=== PATIENT | female | born 1965 | race Caucasian/White ===

== ENCOUNTER 2022-07-17 12:18 | Day surgery (SDC) | payer MEDICARE, BC ==
--- NOTE | 2022-07-17 12:54 | ANESTHESIA ---
Pre-Anesthesia VS, & Labs - Diagnosis change in bowel habits - Procedure colonoscopy Vital Signs: Temp Pulse Resp BP Pulse Ox O2 Flow Rate 36.4 C L 66 16 146/85 H 99 0 07/17/22 12:43 07/17/22 12:43 07/17/22 12:43 07/17/22 12:43 07/17/22 12:43 07/17/22 12:43 Height: 5 ft 9 in Weight (kg): 76.5 kg Body Mass Index: 24.9 BMI Classification: Normal - NPO >8 hours Last Fluid Intake: am prep - Is Patient ?: No - Lab Results Lab results reviewed: Yes Home Medications and Allergies Home Medications: Ambulatory Orders Furosemide [Lasix] 20 mg PO DAILY 07/16/22 Gabapentin [Neurontin] 400 mg PO HS 07/16/22 Levothyroxine Sodium [Synthroid] 25 mcg PO DAILY 07/16/22 Metoprolol Tartrate [Lopressor] 25 mg PO DAILY 07/16/22 Furosemide [Lasix] 20 mg PO DAILY 07/16/22 Gabapentin [Neurontin] 400 mg PO HS 07/16/22 Levothyroxine Sodium [Synthroid] 25 mcg PO DAILY 07/16/22 Metoprolol Tartrate [Lopressor] 25 mg PO DAILY 07/16/22 Allergies/Adverse Reactions: Allergies Allergy/AdvReac Type Severity Reaction Status Date / Time No Known Drug Allergies Allergy Verified 07/16/22 11:37 Anes History & Medical History - Anesthetic History Anesthesia Complications: reports: No previous complications Family history of Anesthesia Complications: Denies Family history of Malignant Hyperthermia: Denies - Medical History Cardiovascular: reports: Hypertension Pulmonary: reports: None Gastrointestinal: reports: None Urinary: reports: None Musculoskeletal: reports: None Endocrine/Autoimmune: reports: HyPOthyroidism Skin: reports: None History of Cancer?: Yes (fallopian tube current with chemo) - Surgical History General: reports: Colonoscopy, Other Gynecologic: reports: Hysterectomy Exam General: Alert, Oriented x3, Cooperative Dental: WNL Mouth Openin Fingerbreadth Neck Mobility: Normal Mallampati classification: I Thyromental Distance: 4-6 cm Respiratory: Lungs clear, Normal breath sounds, No respiratory distress Cardiovascular: Regular rate Neurological: Normal speech Mental/Cognitive Status: Alert/Oriented X3, Normal for patient Cognitive Status: Within normal limits Plan Anesthesia Type: Total IV Consent for Procedure(s) Verified and Reviewed: Yes Code Status: Attempt Resuscitation ASA classification: 3-Severe systemic disease Is this case an emergency?: No
[2022-07-17] MEDS ORDERED: LACTATED RINGERS 1,000 ML IV ONE ×2 (13:05→14:03)
[2022-07-17] MEDS ORDERED: PROPOFOL 500 MG/50 ML 500 MG/50 ML VIAL ONE (13:17)
[2022-07-17] MEDS ORDERED: MIDAZOLAM 2 MG/2 ML VIAL ONE (13:19)
[2022-07-17] MEDS ORDERED: PROPOFOL 200 MG/20 ML VIAL IVP ONE (13:19)
[2022-07-17] MEDS ORDERED: LIDOCAINE-MPF 2% 5 ML VIAL ONE (13:21)
--- NOTE | 2022-07-17 14:04 | ANESTHESIA POST OP EVALUATION ---
Anesthesia Post Eval - Post Anesthesia Eval Vitals: Last Vital Signs Temp 36.4 C L 07/17/22 12:43 Pulse 66 07/17/22 12:43 Resp 16 07/17/22 12:43 BP 146/85 H 07/17/22 12:43 Pulse Ox 99 07/17/22 12:43 O2 Flow Rate 0 07/17/22 12:43 CV Function Including HR & BP: Stable Pain Control: Satisfactory Nausea & Vomiting: Negative Mental Status: Baseline Respiratory Status: Airway Patent Hydration Status: Satisfactory Anesthesia Complications: None
[2022-07-17 14:25] VITALS: BP 118/79
== END 2022-07-17 12:19 | disposition home or self-care (01) ==
LOC: SDS 12:18
PROVIDERS: ATTEND Surgery
DX: R19.4 Change in bowel habit (principal); R19.5 Other fecal abnormalities; I10 Essential (primary) hypertension; Z80.0 Family history of malignant neoplasm of digestive organs; Z85.038 Personal history of other malignant neoplasm of large intestine; Z85.44 Personal history of malignant neoplasm of other female genital organs
CPT/HCPCS: 45378; J7120

== ENCOUNTER 2023-02-06 13:24 | Outpatient (CLI) | payer MEDICARE, BC ==
--- NOTE | 2023-02-15 11:14 | Mammography Report ---
BILATERAL DIGITAL SCREENING MAMMOGRAM 3D/2D: 02/06/2023 CLINICAL: Routine screening. No prior exams were available for comparison. Both breasts are heterogeneously dense, which may obscure small masses (category c / 51-75% glandular tissue). No significant masses, calcifications, or other findings are seen in either breast. IMPRESSION: NEGATIVE There is no mammographic evidence of malignancy. A 1 year screening mammogram is recommended. Based on the Tyrer Cuzick model (a risk assessment model) the patients lifetime risk is 13.1% and he r 10 year risk is 4.9%. According to the ACR, ACS, and NCCN guidelines, an annual breast MRI exam sylvie ng with mammogram is recommended if the patients lifetime risk is 20% or greater. This exam was interpreted at Station ID: [id number]. NOTE: For mammograms, a report in lay terms will be sent to the patient. Approximately 15% of breast malignancies will not be visualized mammographically. In the management of a palpable breast mass, a negative mammogram must not discourage biopsy of a clinically suspicious lesion. Electronically Signed By: Haroldo long/jessica:02/14/2023 13:10:09 letter sent: No_Letter ACR BI-RADS Category 1: Negative 3341F PARENCHYMAL PATTERN: (D) - The breast(s) demonstrate(s) heterogeneously dense fibroglandular parshanelly graciela. BI-RADS CATEGORY: (1) - 1 Mammogram [id number] 1 year screening LATERALITY: (B)
== END 2023-02-06 13:25 | disposition home or self-care (01) ==
LOC: DI 13:24
PROVIDERS: ATTEND Internal Medicine
DX: Z12.31 Encounter for screening mammogram for malignant neoplasm of breast (principal)

== ENCOUNTER 2024-03-09 12:55 | Outpatient (CLI) | payer MEDICARE, BC ==
--- NOTE | 2024-03-10 10:17 | Mammography Report ---
BILATERAL DIGITAL SCREENING MAMMOGRAM 3D/2D: 03/09/2024 CLINICAL: Routine screening. Comparison is made to exam dated: 02/06/2023 mammogram - [facility]. Both breasts are heterogeneously dense, which may obscure small masses (category c / 51-75% glandular tissue). No significant masses, calcifications, or other findings are seen in either breast. There has been no significant interval change. IMPRESSION: NEGATIVE There is no mammographic evidence of malignancy. A 1 year screening mammogram is recommended. Based on the Tyrer Cuzick model (a risk assessment model) the patient's lifetime risk is 12.9% and he r 10 year risk is 5.0%. According to the ACR, ACS, and NCCN guidelines, an annual breast MRI exam sylvie ng with mammogram is recommended if the patient's lifetime risk is 20% or greater. This exam was interpreted at Station ID: [id number]. NOTE: For mammograms, a report in lay terms will be sent to the patient. Approximately 15% of breast malignancies will not be visualized mammographically. In the management of a palpable breast mass, a negative mammogram must not discourage biopsy of a clinically suspicious lesion. Electronically Signed By: Carlitos Carcamo M.D. [facility] [place]:03/09/2024 19:08:18 letter sent: No_Letter ACR BI-RADS Category 1: Negative 3341F PARENCHYMAL PATTERN: (D) - The breast(s) demonstrate(s) heterogeneously dense fibroglandular chepe owens. BI-RADS CATEGORY: (1) - 1 RECOMMENDATION: (ANNUAL) - Recommend routine annual screening mammography. [id number] 1 year screening LATERALITY: (B)
== END 2024-03-09 12:56 | disposition home or self-care (01) ==
LOC: DI 12:55
PROVIDERS: ATTEND Internal Medicine
DX: Z12.31 Encounter for screening mammogram for malignant neoplasm of breast (principal); R92.333 Mammographic heterogeneous density, bilateral breasts

== ENCOUNTER 2025-02-21 13:23 | Inpatient (IN) ==
--- OUTSIDE RECORDS SUMMARY | 2025-02-21 13:41 | EXTERNAL MEDICAL SUMMARY RPT | Continuity of Care Document ---
Author Organization [facility] Address [address] [address] Phone Problems date description facility 2024-12-15 08:08 Encounter for genera l adult medical examination without abnormal findings [facility] 2024-12-15 08:19 Encounter for genera l adult medical [facility] 2024-12-16 00:03 Encounter for genera l adult medical examination [facility] Results/Labs test date facility value unit notes Result panel 1 LDL/HDL RATIO 2024-12-15 08:11 [facility] 1.5 (mis sing) (missing) [facility] 2024-12-15 08:11 [facility] 135 mg/d l Social History date description facility
--- NOTE | 2025-02-21 14:28 | ED Physician Documentation ---
History of Present Illness Stated complaint Stated Complaint: GI Chief complaint Chief Complaint: Abd Pain History obtained from History obtained from: Patient History of Present Illness Timing: Prior to arrival Additonal information Additional information: Patient is a 60-year-old female presenting to the emergency department with abdominal pain. She had multiple episodes of nausea and vomiting going on since Saturday. She notes pain to her right lower quadrant. She has a significant past medical history of ovarian cancer that she has been treated for with immunotherapy at this time.She has had multiple abdominal surgeries including appendectomy bowel resection in 2020 and oophorectomy with hysterectomy.No history of small bowel obstruction no fevers or chills. She has not been able to have an episode of vomiting yesterday since yesterday. She has poor urine output and is not passing gas or having any bowel movements. Meds/Allgy Home Medications Ambulatory Orders Medication Instructions Recorded Confirmed levothyroxine 25 mcg tablet 25 mcg PO DAILY 07/16/22 02/21/25 (Synthroid) Allergies Allergies Allergy/AdvReac Type Severity Reaction Status Date / Time No Known Drug Allergies Allergy Verified 02/21/25 13:35 PFSH Active Problems All Active Problems (Updated 02/21/25 @ 17:08 by Kenia Adamson MD) Nausea & vomiting (Acute) SBO (small bowel obstruction) (Acute) Partial small bowel obstruction (Acute) Medical History Medical History (Updated 02/21/25 @ 17:08 by Kenia Adamson MD) Stage IV carcinoma of ovary Social History Social History (Updated 02/21/25 @ 15:00 by Ld Davies RN, BSN) Smoking Status: Never smoker Living arrangement: At home Relationship: Do you feel safe in your home environment?: Yes Suffered physical, verbal, emotional, or financial abuse?: No ETOH Use: None Exam Exam Vital Signs: Vital Signs x48h Temp Pulse Resp BP Pulse Ox 02/21/25 16:08 70 16 128/82 98 02/21/25 13:35 65 16 155/87 H 98 02/21/25 13:33 36.6 C 92 18 136/93 H 98 Constitutional normal general appearance HENMT normocephalic and head/scalp atraumatic Eyes PERRL, EOMs intact bilaterally and conjunctivae normal Neck/C-Spine visual inspection normal Lymph no lymphadenopathy noted Chest inspection of chest normal Respiratory breath sounds equal bilaterally, normal respiratory effort and clear to auscultation bilaterally Cardiovascular normal heart rate noted, regular rhythm noted, no gallop and no rub Gastrointestinal abdomen normal to inspection Abdomen is tender, No active bowel sounds on auscultation Genitourinary no CVA tenderness Back/Pelvis spine normal to inspection Psychiatry mental status grossly normal Skin skin color normal Results Vitals Vitals: Vital Signs - 24 hr 02/21/25 13:33 02/21/25 13:35 02/21/25 16:08 Temperature 36.6 C Temperature Source Temporal Artery Scan Pulse Rate 92 65 70 Respiratory Rate 18 16 16 Blood Pressure 136/93 H 155/87 H 128/82 O2 Saturation 98 98 98 O2 Source Room air Room air Room air Pain Intensity 8 3 3 Oxygen O2 Source Room air Labs Labs: Laboratory Tests 02/21/25 14:30 WBC 8.6 RBC 4.25 Hgb 12.7 Hct 40.2 MCV 94.6 MCH 29.9 MCHC 31.6 L RDW 13.2 Plt Count 188 MPV 11.2 H Neut # (Auto) 7.3 H Lymph # (Auto) 0.7 L [place] # (Auto) 0.5 Eos # (Auto) 0.0 Baso # (Auto) 0.0 Absolute Nucleated RBC 0.00 Nucleated RBC % 0.0 Sodium 140 Potassium 4.1 Chloride 104 Carbon Dioxide 28 Anion Gap 8.0 BUN 33 H Creatinine 1.3 Estimated GFR (MDRD) 42 L Glucose 98 Calcium 9.1 Total Bilirubin 1.1 H AST 17 ALT 11 Alkaline Phosphatase 88 Total Protein 6.7 Albumin 3.9 Globulin 2.8 Albumin/Globulin Ratio 1.4 Lipase 22 Urine Color YELLOW Urine Clarity CLEAR Urine pH 6.0 Ur Specific [place] >=1.030 H Urine Protein 30 H Urine Glucose (UA) NEGATIVE Urine Ketones TRACE Urine Occult Blood NEGATIVE Urine Nitrite NEGATIVE Urine Bilirubin SMALL H Urine Urobilinogen 0.2 (NORMAL) Ur Leukocyte Esterase NEGATIVE Urine RBC 0-5 Urine WBC 0-3 Ur Squamous Epith Cells RARE Squamous Urine Bacteria Rare Urine Mucus Moderate Strands Ur Microscopic Review INDICATED Urine Culture Comments NOT INDICATED Rads (name of study) CT abdomen pelvis with contrast: Interpretation: Small bowel obstruction involving the bowel to bowel anastomosis. Transition point identified within the left lower quadrant axial image 90 moderate free fluid within the abdomen without rise abscess. PD Medical Decision Making ED course Complexity details: reviewed old records and reviewed results ED course: Patient 60-year-old female presenting to the emergency department with abdominal pain in the right lower quadrant and nausea and vomiting and decreased bowel movements. History of multiple surgeries including appendectomy, bowel resection in 2020, history of hysterectomy. Labs here in the emergency department show no leukocytosis CMP is unremarkable no significant JENNY UA is negative lipase within normal limits. CT abdomen pelvis: Small bowel obstruction involving the bowel to bowel anastomosis. Transition point identified within the left lower quadrant axial image 90 moderate free fluid within the abdomen without rise abscess. Patient CT concerning for small bowel obstruction NG tube ordered here in the ED General Surgery made aware and will see patient in hospital. Patient admitted to Dr. Aquino who is agreeable with admission at this time she will come down and evaluate patient here in the ED. Patient agreeable with this plan. Discharge Plan Discharge Patient Disposition: 66 [facility] DC/Xfer Condition: Good Clinical Impression: SBO (small bowel obstruction), Nausea & vomiting Prescriptions: No Action levothyroxine [Synthroid] 25 MCG tablet 25 mcg PO DAILY Print Language: Maldivian
[2025-02-21] MEDS: SODIUM CHLORIDE 0.9% 1,000 ML IV STA (14:29)
[2025-02-21] MEDS: ONDANSETRON 4 MG/2 ML VIAL IVP STA (14:29)
[2025-02-21 14:50] LABS: BILIRUBIN,URINE SMALL (NEGATIVE); CLARITY,URINE CLEAR (CLEAR); GLUCOSE, URINE (UA) NEGATIVE (NEGATIVE); KETONES,URINE (UA) TRACE mg/dL (NEGATIVE); LEUKOCYTE ESTERASE, URINE NEGATIVE (NEGATIVE); NITRITE,URINE NEGATIVE (NEGATIVE); OCCULT BLOOD,URINE NEGATIVE (NEGATIVE); PROTEIN,URINE 30 mg/dL (NEGATIVE); UROBILINOGEN,URINE 0.2 (NORMAL) E.U./dL (NORMAL)
[2025-02-21 14:54] LABS: BASOPHILS % (AUTO) 0.4 %; HCT - HEMATOCRIT 40.2 % (37.0-47.0); HGB - HEMOGLOBIN 12.7 g/dL (12.0-16.0); LYMPHOCYTES # (AUTO) 0.7 10^3/uL (1.5-3.5); LYMPHOCYTES % (AUTO) 8.4 %; MEAN CORPUSCULAR HEMOGLOBIN 29.9 pg (27.0-31.0); MEAN CORPUSCULAR HGB CONC 31.6 g/dL (32.0-36.0); MEAN CORPUSCULAR VOLUME 94.6 fL (81.0-99.0); MEAN PLATELET VOLUME 11.2 fL (7.9-10.8); MONOCYTES # (AUTO) 0.5 10^3/uL (0.0-1.0); MONOCYTES % (AUTO) 6.3 %; NEUTROPHILS # (AUTO) 7.3 10^3/uL (1.5-6.6); NEUTROPHILS % (AUTO) 84.8 %; PLT - PLATELET COUNT 188 10^3/uL (130-450); RED BLOOD COUNT 4.25 10^6/uL (4.20-5.40); RED CELL DISTRIBUTION WIDTH 13.2 % (12.0-15.0); WHITE BLOOD COUNT 8.6 x10^3/uL (4.8-10.8)
[2025-02-21 14:56] LABS: BACTERIA,URINE Rare /HPF (None Seen); MUCUS,URINE Moderate Strands; RBC,URINE 0-5 /HPF (0-5); SQUAMOUS EPITHELIAL CELL,UR RARE Squamous (<= Few); WBC,URINE 0-3 /HPF (0-5)
[2025-02-21 15:09] LABS: ALBUMIN 3.9 g/dL (3.2-5.5); ALBUMIN/GLOBULIN RATIO 1.4 (1.0-2.2); BILIRUBIN,TOTAL 1.1 mg/dL (0.2-1.0); CALCIUM 9.1 mg/dL (8.5-10.3); CREATININE 1.3 mg/dL (0.6-1.3); POTASSIUM 4.1 mmol/L (3.5-4.5); TOTAL PROTEIN 6.7 g/dL (6.4-8.9)
[2025-02-21] MEDS ORDERED: iohexoL-300 100 ML VIAL ONE (15:12)
[2025-02-21] MEDS: iohexoL-300 100 ML VIAL IVP ONE (16:37)
--- NOTE | 2025-02-21 16:41 | CT Report ---
PROCEDURE: CT Abdomen/Pelvis W INDICATIONS: concern for sbo, hx of colectomy and multiple abd CONTRAST: omni 300, 100 TECHNIQUE: After the administration of intravenous contrast, a CT scan of the abdomen and pelvis was performed. Images were recorded and evaluated at appropriate window settings. Reformats: coronal and sagittal. F or radiation dose reduction, the following was used: automated exposure control, adjustment of mA and /or kV according to patient size. COMPARISON: None. FINDINGS: Image quality: Diagnostic. Lower chest: Unremarkable. Liver: Hepatic steatosis. Gallbladder: No radiopaque stones or wall thickening. Biliary tree: No intrahepatic or extrahepatic dilation, accounting for age. Spleen: No splenomegaly. Pancreas: No pancreatic ductal dilation. Adrenals: No adrenal nodule. Kidneys and ureters: No hydronephrosis. No renal cystic lesion which requires follow up. No solid mas s. Stomach, bowel and peritoneum: Small bowel obstruction involving the bowel to bowel anastomosis. Barboza sition point identified within the left lower quadrant axial image 90 moderate free fluid within the abdomen without rise abscess. Lymph nodes: No central or retroperitoneal adenopathy. Vessels: No infrarenal aortic aneurysm. Patent portal vein. PELVIS Reproductive organs: Unremarkable. Bladder: No abnormal wall thickening. Pelvic lymph nodes: No pelvic adenopathy by size criteria. Bones: No aggressive osseous abnormality. Other: No significant ventral or inguinal hernia. IMPRESSION: Small bowel instruction with transition point within left lower quadrant. No free air identified. Hepatic steatosis. Reviewed by: Gen Almeida MD on 02/21/2025 3:39 PM AKAARTI Approved by: Gen Almeida MD on 02/21/2025 3:39 PM AKDT Station ID: [id number]
--- NOTE | 2025-02-21 17:03 | HISTORY & PHYSICAL EXAMINATION ---
Chief Complaint Chief Complaint Chief Complaint: abdominal pain w N/V History of Present Illness Admitted From Admitted From:: home History Obtained From Records Reviewed: [facility] History obtained from: DASH Espinoza Exam Limitations: none History of Present Illness HPI Comment/Other: Is a 60-year-old female who has history of a change in bowel habits dating to 2018 in [place], [place]. She has been subsequently diagnosed with metastatic ovarian cancer and has undergone extirpative surgery with hysterectomy and oophorectomy that year. About 9 months later in 2019 had erosion of tumor into the bowel resulted in a colon resection with reanastomosis. 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 Treatment changed to immunotherapy treatment. She is felt to be in remission and is on maintenance therapy. It's been 4 years. She moved to the [place] to leave the "[facility]" [facility] [place] and at the recommendations of friends who live here. It's cold. she can't get warm. She has also lost about 35-40 pounds on a plant based diet, and weight training with core emphasis. Here PCP is Dr. Shantel Jerry DO at [facility]. Her Oncologist is Diana Park MD at [facility]. She began vomiting February 19. It started that evening and she has been unable to keep anything down between then and now. She has not had a bowel movement since that morning. She denies fever, chills. There is no blood in the emesis. She has not had this before. Vital signs in the ER had a temperature of 36.6, heart rate of 92, respirations 18, O2 sat 98% on room air with a blood pressure of 136/93. Her labs showed her to have a sodium of 140. BUN 33, creatinine 1.3. We do not have any previous labs on her to compare to. Total bili 1.1. Liver function studies normal. White cell count normal at 8.6. And abdomen/pelvis CT showing small bowel obstruction involving the bowel to bowel anastomosis. Transition point identified within the left lower quadrant axial image with moderate free fluid within the abdomen without abscess. No pelvic adenopathy. Hepatic steatosis. NG tube was placed. DASH Barba discussed the case with general surgery on-call. Dr. Hudson will consult on the patient tomorrow and we will be the admitting service. 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 Surgical History Surgical History (Updated 02/21/25 @ 18:51 by Kenia Adamson MD) History of appendectomy (~2018) incidental with ELIZABETH/BSO History of total abdominal hysterectomy and bilateral salpingo-oophorectomy (~2018) including appendectomy/debulking History of bowel resection (~2019) for bowel perforation occurring during during chemotherapy Family History Family History (Updated 02/21/25 @ 18:53 by Kenia Adamson MD) Father Colon cancer Mother Unknown clinical stage Brother Bicycle accident Social History Social History (Updated 02/21/25 @ 19:06 by Kenia Adamson MD) Smoking Status: Never smoker Second hand tobacco smoke exposure: No Do you dip or chew tobacco?: No Do you vape?: No Living arrangement: At home Marital Status: Living Condition: With spouse/s.o. More Information: not in contact with parents for decades. Estranged. 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 Retired: Yes Service: No Are you following a special diet: Yes (plant based for 1.5 years) POLST Patient has POLST: No POLST Status: Full Code (DPOA is spouse Marva Coleman) Review of Systems Status of ROS: 10 or more systems reviewed and unremarkable except as noted in history and below Constitutional Reports: Fatigue and Weight loss Ears, nose, mouth, and throat Denies: Difficulty swallowing Gastrointestinal Reports: Abdominal pain, Abdominal distention, Nausea, Vomiting, Bloating and Belching; Denies: Coffee grounds in vomit, Heartburn, Diarrhea, Difficulty swallowing, Rectal bleeding, Rectal pain, Melena or Blood in stool Musculoskeletal Reports: Stiffness (Left knee) Neurological Denies: Headache, General weakness, Confusion, Memory problems or Behavioral changes Psychiatric Reports: Other ("Im a rock"); Denies: Depression, Anxiety, Mood swings, Panic attacks, Hopelessness, Loss of interest, Irritability or Paranoia Endocrine Reports: Fatigue and Cold intolerance (but she thinks it's just a [place] thing compared to [place] heat) Prior Level of Functionality: Fairly independent with ADLs, driving, paying bills, housework Exam Exam Vital Signs: Vital Signs x48h Temp Pulse Pulse Resp BP BP Pulse Ox 02/21/25 17:50 36.4 C L 65 18 159/91 H 98 02/21/25 17:45 78 14 132/84 H 98 02/21/25 16:08 70 16 128/82 98 02/21/25 13:35 65 16 155/87 H 98 02/21/25 13:33 36.6 C 92 18 136/93 H 98 Alert and oriented thin female who looks younger than stated age, her partner and spouse Haven is at the bedside. NG right nares. Complaining of pain and getting Dilaudid that I have ordered. Constitutional normal general appearance HENMT normocephalic, head/scalp atraumatic and hearing grossly normal bilaterally Eyes PERRL and no scleral icterus Neck/C-Spine cervical full ROM noted and supple Chest inspection of chest normal Respiratory breath sounds equal bilaterally, normal respiratory effort, clear to auscultation bilaterally, no wheezes and no rales Cardiovascular normal heart rate noted, regular rhythm noted and no murmur Gastrointestinal Slightly distended. Bilateral lower quadrant ache with palpation but no rebound. No bowel sounds. No hernias palpable or reducible Genitourinary no CVA tenderness Back/Pelvis spine normal to inspection Extremities normal to inspection, normal to palpation, no tenderness, full ROM and no joint enlargement Neurology cro II-XII intact, no movement abnormality noted, no focal motor deficit noted, no sensory deficits noted, speech normal and coordination normal Psychiatry mental status grossly normal Skin skin color normal, skin turgor normal and no mottling Conclusion/Plan Problem List (1) SBO (small bowel obstruction): Plan: In this germ[place] woman who has had hysterectomy, oophorectomy, and bowel resection my suspicion is that of adhesions. Recurrence of her ovarian cancer with omental metastatic disease certainly consideration but she is under careful and assiduous follow-up by her oncologist and so far she has been doing well. She was just seen a few weeks ago. There is no fever. She has no elevated white cell count. Plan: Observation status initially General surgeon I have discussed the case. We both of explained what we think is going on to the patient and her partner Haven. Right now we are going to be doing NG to low intermittent suction. Treating her pain and her nausea with Dilaudid and Zofran IV. Dilaudid is 0.5 mg IV push every 2 hours as needed. And then were going to wait. Tomorrow most likely will do a Gastrografin challenge. If there is no resolution of her bowel obstruction, I will transition her to inpatient status. Daily CBCs and BMPs. I will monitor her for electrolyte disturbance since she is on NG suction. Better plant-based diet. She may have to go on a liquid diet with low fiber the first week or 2 after her recovery. And then slowly go back to her regular diet. I do not think her high fiber led to this obstruction (2) Stage IV carcinoma of ovary: Plan: Currently on immunotherapy. In remission with regards to LESLY. Excellent results. She does know how much longer she is going to be on immunotherapy but she thinks it will be indefinitely as long as she continues to respond. I will notify her primary care provider to let them know she is here. And she will notify her oncologist. Lab Results Lab results reviewed: Yes 02/21/25 14:30 02/21/25 14:30 Diagnostic Imaging Results Diagnostic Imaging Results: positive Final report reviewed Diagnostic Imaging Results Comments: Chest x-ray with appropriate positioning of NG tube. Air-filled loops of bowel consistent with small bowel obstruction. Abdomen/pelvis CT has small bowel obstruction involving the ball of the bowel anastomosis. Transition point identified within the left lower quadrant with moderate free fluid within the abdomen without abscess. Core Measures Anticipated LOS I expect patient to be DC'd or transferred within 96 hours.: Yes DVT/VTE - Prophylaxis VTE/DVT Prophylaxis med ordered at admit?: Yes
[2025-02-21] MEDS ORDERED: ONDANSETRON 4 MG/2 ML VIAL IVP PRN (17:47)
[2025-02-21] MEDS: SODIUM CHLORIDE FLUSH 0.9% 10 ML SYRINGE IVP SCH (18:01)
[2025-02-21] MEDS: HYDROmorphone 0.5 MG/0.5 ML SYRINGE IVP PRN (18:01)
[2025-02-21] MEDS: SODIUM CHLORIDE 0.9% 1,000 ML IV SCH (18:01)
--- NOTE | 2025-02-21 18:43 | CONSULTATION NOTE ---
History of Present Illness History of Present Illness HPI Comment/Other: 60F admitted with small bowel obstruction. She has had nausea and vomiting for 48hrs (since Saturday night), her last BM was Saturday before the onset of symptoms. Pain is primarily in the lower abdomen. She was working out and doing all her normal activities during the day before onset of symptoms. She has never had a bowel obstruction before. She has a history of Stage IV ovarian cancer diagnosed in 2019. She underwent initial TAHBSA/debulking/appendectomy with adjuvant chemotherapy. A year later she had a recurrence and was started on a second regimen of chemotherapy, during which she developed a bowel perforation and underwent an ex lap with bowel resection in 2019 (further details unknown to patient, this was in [place], her oncologist at [facility] has her records and we will request them). She is currently stable on immunotherapy from an oncologic standpoint, and has not had further surgeries since 2019 and has never had obstructive symptoms. About a year ago she did switch to a plant-based diet. 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 Surgical History Surgical History (Updated 02/21/25 @ 18:51 by Kenia Adamson MD) History of appendectomy (~2018) incidental with ELIZABETH/BSO History of total abdominal hysterectomy and bilateral salpingo-oophorectomy (~2018) including appendectomy/debulking History of bowel resection (~2019) for bowel perforation occurring during during chemotherapy Family History Family History (Updated 02/21/25 @ 18:52 by Kenia Adamson MD) Father Colon cancer Mother Unknown clinical stage Brother Bicycle accident Social History Social History (Updated 02/21/25 @ 15:00 by Ld Davies, RN, BSN) Smoking Status: Never smoker Living arrangement: At home Relationship: Do you feel safe in your home environment?: Yes Suffered physical, verbal, emotional, or financial abuse?: No ETOH Use: None POLST Patient has POLST: No POLST Status: Full Code Meds/Allgy Home Medications Ambulatory Orders Medication Instructions Recorded Confirmed levothyroxine 25 mcg tablet 25 mcg PO DAILY 07/16/22 02/21/25 (Synthroid) Allergies Allergies Allergy/AdvReac Type Severity Reaction Status Date / Time No Known Drug Allergies Allergy Verified 02/21/25 13:35 Results Lab Results 02/21/25 14:30 02/21/25 14:30 Other Lab Results: Lab Results x24hrs 02/21/25 Range/Units 14:30 WBC 8.6 (4.8-10.8) x10^3/uL RBC 4.25 (4.20-5.40) 10^6/uL Hgb 12.7 (12.0-16.0) g/dL Hct 40.2 (37.0-47.0) % MCV 94.6 (81.0-99.0) fL MCH 29.9 (27.0-31.0) pg MCHC 31.6 L (32.0-36.0) g/dL RDW 13.2 (12.0-15.0) % Plt Count 188 (130-450) 10^3/uL MPV 11.2 H (7.9-10.8) fL Neut # (Auto) 7.3 H (1.5-6.6) 10^3/uL Lymph # (Auto) 0.7 L (1.5-3.5) 10^3/uL [place] # (Auto) 0.5 (0.0-1.0) 10^3/uL Eos # (Auto) 0.0 (0.0-0.7) 10^3/uL Baso # (Auto) 0.0 (0.0-0.1) 10^3/uL Absolute Nucleated RBC 0.00 x10^3/uL Nucleated RBC % 0.0 /100WBC Sodium 140 (135-145) mmol/L Potassium 4.1 (3.5-4.5) mmol/L Chloride 104 (101-111) mmol/L Carbon Dioxide 28 (21-32) mmol/L Anion Gap 8.0 (6-13) BUN 33 H (6-20) mg/dL Creatinine 1.3 (0.6-1.3) mg/dL Estimated GFR (MDRD) 42 L (>89) Glucose 98 (74-104) mg/dL Calcium 9.1 (8.5-10.3) mg/dL Total Bilirubin 1.1 H (0.2-1.0) mg/dL AST 17 (10-42) IU/L ALT 11 (10-60) IU/L Alkaline Phosphatase 88 (42-121) IU/L Total Protein 6.7 (6.4-8.9) g/dL Albumin 3.9 (3.2-5.5) g/dL Globulin 2.8 (2.1-4.2) g/dL Albumin/Globulin Ratio 1.4 (1.0-2.2) Lipase 22 (11-82) U/L Urine Color YELLOW Urine Clarity CLEAR (CLEAR) Urine pH 6.0 (5.0-7.5) PH Ur Specific [place] >=1.030 H (1.002-1.030) Urine Protein 30 H (NEGATIVE) mg/dL Urine Glucose (UA) NEGATIVE (NEGATIVE) mg/dL Urine Ketones TRACE (NEGATIVE) mg/dL Urine Occult Blood NEGATIVE (NEGATIVE) Urine Nitrite NEGATIVE (NEGATIVE) Urine Bilirubin SMALL H (NEGATIVE) Urine Urobilinogen 0.2 (NORMAL) (NORMAL) E.U./dL Ur Leukocyte Esterase NEGATIVE (NEGATIVE) Urine RBC 0-5 (0-5) /HPF Urine WBC 0-3 (0-5) /HPF Ur Squamous Epith Cells RARE Squamous (<= Few) Urine Bacteria Rare (None Seen) /HPF Urine Mucus Moderate Strands Ur Microscopic Review INDICATED Urine Culture Comments NOT INDICATED Diagnostic Imaging Results Diagnostic Imaging Results: positive Read contemporaneously Diagnostic Imaging Results Comments: PROCEDURE: CT Abdomen/Pelvis W INDICATIONS: concern for sbo, hx of colectomy and multiple abd CONTRAST: omni 300, 100 TECHNIQUE: After the administration of intravenous contrast, a CT scan of the abdomen and pelvis was performed. Images were recorded and evaluated at appropriate window settings. Reformats: coronal and sagittal. For radiation dose reduction, the following was used: automated exposure control, adjustment of mA and/or kV according to patient size. COMPARISON: None. FINDINGS: Image quality: Diagnostic. Lower chest: Unremarkable. Liver: Hepatic steatosis. Gallbladder: No radiopaque stones or wall thickening. Biliary tree: No intrahepatic or extrahepatic dilation, accounting for age. Spleen: No splenomegaly. Pancreas: No pancreatic ductal dilation. Adrenals: No adrenal nodule. Kidneys and ureters: No hydronephrosis. No renal cystic lesion which requires follow up. No solid mass. Stomach, bowel and peritoneum: Small bowel obstruction involving the bowel to bowel anastomosis. Transition point identified within the left lower quadrant axial image 90 moderate free fluid within the abdomen without rise abscess. Lymph nodes: No central or retroperitoneal adenopathy. Vessels: No infrarenal aortic aneurysm. Patent portal vein. PELVIS Reproductive organs: Unremarkable. Bladder: No abnormal wall thickening. Pelvic lymph nodes: No pelvic adenopathy by size criteria. Bones: No aggressive osseous abnormality. Other: No significant ventral or inguinal hernia. IMPRESSION: Small bowel instruction with transition point within left lower quadrant. No free air identified. Hepatic steatosis. Reviewed by: Gen Almeida MD on 02/21/2025 3:39 PM AKDT Review of Systems Status of ROS: 10 or more systems reviewed and unremarkable except as noted in history and below Exam Exam Vital Signs: Vital Signs x48h Temp Pulse Pulse Resp BP BP Pulse Ox 02/21/25 17:50 36.4 C L 65 18 159/91 H 98 02/21/25 17:45 78 14 132/84 H 98 02/21/25 16:08 70 16 128/82 98 02/21/25 13:35 65 16 155/87 H 98 02/21/25 13:33 36.6 C 92 18 136/93 H 98 Constitutional normal general appearance, no apparent distress, average body habitus and no limitations HENMT normocephalic Eyes conjunctivae normal and normal visual jackson by confrontation Neck/C-Spine visual inspection normal Respiratory normal respiratory effort Cardiovascular normal heart rate noted Gastrointestinal abdomen soft to palpation, tender to palpation (moderate ttp in bilateral lower quadrants, no peritoneal signs) and distended (mild distension) Extremities normal to inspection Neurology no movement abnormality noted Psychiatry mental status grossly normal and oriented x3 Skin skin color normal Conclusion/Plan Problem List (1) SBO (small bowel obstruction): Plan: 60yoF admitted this afternoon with first SBO. Presume adhesive disease in setting of two significant abdominal surgeries for her Stage IV ovarian cancer (detailed in HPI). HDN/AF, non-peritoneal abdominal exam, normal WBC, CT with transition point but no alarm features such as free air, closed loop obstruction. NGT placed in ED, CXR confirms it is in proper position. I placed it to LIWS during my exam. Admitted to medicine. - continue NGT to LIWS, flush to ensure patency - NPO/IVF - Dr. Adamson plans to obtain records from her oncologist at [facility] - will review to see nature of second surgery for bowel perforation/resection. - Anticipate gastrografin challenge after initial 12-24hrs decompression Discussed with patient nature of adhesive SBOs, use of gastrografin challenge as both diagnostic and therapeutic process, and potential for surgery if obstruction does not resolve with decompression. Dr. Medina to assume rounding for gensurg tomorrow, which was also discussed with patient and Dr. Juan Diego Hudson DO, [facility] General Surgeon, [facility] Lab Results 02/21/25 14:30 02/21/25 14:30 Diagnostic Imaging Results Diagnostic Imaging Results: positive Read contemporaneously
--- NOTE | 2025-02-21 18:49 | XRAY Report ---
PROCEDURE: XR Chest 1V INDICATIONS: Confirm NG tube placement TECHNIQUE: One view of the chest was acquired. COMPARISON: None. FINDINGS: Surgical changes and devices: NG tube with side port projecting over the gastric bubble. Left chest port with tip at the superior cavoatrial junction. Lungs and pleura: No pleural effusions or pneumothorax. No consolidation. Mediastinum: Mediastinal contours appear normal. Heart size is normal. Bones and chest wall: No suspicious bony lesions. Several prominent loops of small bowel consistent with small bowel obstruction. IMPRESSION: Appropriate positioning of NG tube. Air-filled loops of bowel consistent with small bowel obstruction. Reviewed by: Gen Almeida MD on 02/21/2025 5:47 PM SEVERO Approved by: Gen Almeida MD on 02/21/2025 5:47 PM SEVERO Station ID: [id number]
[2025-02-22 06:05] LABS: BASOPHILS # (AUTO) 0.1 10^3/uL (0.0-0.1); BASOPHILS % (AUTO) 0.7 %; EOSINOPHILS # (AUTO) 0.1 10^3/uL (0.0-0.7); EOSINOPHILS % (AUTO) 0.7 %; HCT - HEMATOCRIT 36.9 % (37.0-47.0); HGB - HEMOGLOBIN 11.6 g/dL (12.0-16.0); LYMPHOCYTES # (AUTO) 0.7 10^3/uL (1.5-3.5); LYMPHOCYTES % (AUTO) 9.6 %; MEAN CORPUSCULAR HEMOGLOBIN 30.4 pg (27.0-31.0); MEAN CORPUSCULAR HGB CONC 31.4 g/dL (32.0-36.0); MEAN CORPUSCULAR VOLUME 96.9 fL (81.0-99.0); MEAN PLATELET VOLUME 10.6 fL (7.9-10.8); MONOCYTES # (AUTO) 0.6 10^3/uL (0.0-1.0); MONOCYTES % (AUTO) 7.3 %; NEUTROPHILS # (AUTO) 6.2 10^3/uL (1.5-6.6); NEUTROPHILS % (AUTO) 81.2 %; PLT - PLATELET COUNT 183 10^3/uL (130-450); RED BLOOD COUNT 3.81 10^6/uL (4.20-5.40); RED CELL DISTRIBUTION WIDTH 13.4 % (12.0-15.0); WHITE BLOOD COUNT 7.7 x10^3/uL (4.8-10.8)
[2025-02-22 07:18] LABS: CALCIUM 8.4 mg/dL (8.5-10.3); CREATININE 1.2 mg/dL (0.6-1.3); POTASSIUM 3.9 mmol/L (3.5-4.5)
--- NOTE | 2025-02-22 07:33 | PROVIDER PROGRESS NOTE ---
Progress Note Progress Note Progress Note: General Surgery Progress Note Hospital Day # 2 - Partial vs complete SBO Code Status: Full ASSESSMENT: 1) SBO, partial vs complete - no clinical, lab, or image evidence of bowel ischemia. Symptoms somewhat improved since admission PLAN: 1) Continue NGT 2) Small bowel challenge study <><><><><> PERTINENT INTERVAL ISSUES: None S: Comfortable; tolerating NGT; No BM; Passing urine OBJECTIVE: I/O: 2060/200 VS: BP 150/90; P 73; RR 16; T 36.2 EXAMINATION: MENTAL STATUS: AAO; Comfortable EYES: Pupils equal, round and reactive to light, sclera anicteric, EARS, NOSE, MOUTH, THROAT: Normal hearing, Oral mucous membranes moist and without lesions; NGT in place NECK: No crepitus, lymphadenopathy, or thyromegaly LUNGS: Clear to auscultation without wheezing; No use of accessory muscles to breathe CARDIOVASCULAR: Heart-NSR without murmurs; ABD: Soft, non-tender, Lower midline incision scar without herniation; + BS LLQ - quiet on right EXTREMITIES: No clubbing, cyanosis, infections SKIN: Anicteric; No rashes, lesions, ulcerations LABS: H&H 11.6/36.9; WBC 7.7; PLT 183k; NA 140; K 3.9; Cr 1.2; Glu 80 CULTURES: N/A IMAGING: CT abd/pelvis and CXR reviewed by me. See official report ANTIMICROBIALS: N/A PAIN CONTROL: IV Hydromorphone VTEP: Chemical: Enoxaparin, 40mg, SQ, QD Mechanical: SCD Byron Medina MD, FACS General Surgery Service
[2025-02-22] MEDS ORDERED: DIATR MEGLU/DIATRIZOATE SODIUM 120 ML BOTTLE ONE (07:42)
[2025-02-22] MEDS: ENOXAPARIN 40 MG/0.4 ML SYRINGE SUBQ SCH (08:50)
[2025-02-22] MEDS: ONDANSETRON ODT 4 MG TABLET TL PRN (08:59)
--- NOTE | 2025-02-22 12:02 | PROVIDER PROGRESS NOTE ---
Subjective Prog Note Date Prog Note Date: 02/22/25 Prog Note Time: 12:01 Subjective Pt reports feeling: No change Subjective: Distention is slightly down but she still has abdominal pain. Significant nausea. NG tube drainage is dark and you cannot see through it. Overnight there has been no fever. White cell count is still normal. Current Medications Current Medications Current Medications: Current Medications Generic Name Dose Route Start Last Admin Trade Name Freq PRN Reason Stop Dose Admin Enoxaparin Sodium 40 mg 02/22/25 09:00 02/22/25 08:50 Enoxaparin 40 Mg/0.4 Ml Syringe SUBQ Not Given DAILY YURIDIA Hydromorphone HCl 0.5 mg 02/21/25 17:47 02/22/25 08:48 Hydromorphone 0.5 Mg/0.5 Ml Syringe IVP 0.5 mg Q2H PRN Administration Pain 8 to 10 Sodium Chloride 1,000 mls @ 83.333 mls/hr 02/21/25 18:00 02/22/25 06:24 Normal Saline 0.9% IV 83.33 mls/hr .Q12H YURIDIA Administration Ondansetron HCl 4 mg 02/21/25 17:47 02/22/25 08:59 Ondansetron Odt 4 Mg Tablet TL 4 mg Q6HR PRN Administration Nausea / Vomiting Ondansetron HCl 4 mg 02/21/25 17:47 Ondansetron 4 Mg/2 Ml Vial IVP Q6HR PRN Nausea / Vomiting Sodium Chloride 10 ml 02/21/25 17:47 Sodium Chloride Flush 0.9% 10 Ml Syringe IVP PRN PRN NEEDED PER PROVIDER ORDERS Sodium Chloride 10 ml 02/21/25 17:47 02/22/25 08:50 Sodium Chloride Flush 0.9% 10 Ml Syringe IVP Not Given 0100,0900,1700 YURIDIA Objective Vital Signs/Intake & Output Reviewed Vital Signs: Yes Vital Signs: Vital Signs x48h Temp Pulse Resp BP Pulse Ox 02/22/25 08:58 36.7 C 68 16 130/87 96 02/22/25 04:36 36.2 C L 73 16 150/90 H 96 Intake & Output: Intake & Output 02/19/25 02/20/25 02/21/25 02/22/25 23:59 23:59 23:59 23:59 Intake Total 1030 / 1030 1030 / 1030 Output Total 200 / 200 Balance 1030 / 1030 830 / 830 Weight (kg) 58 kg Objective General Appearance: positive No acute distress, Alert, Moderate distress (Pain and nausea) and Other (Her Ghada is at the bedside) Eyes Bilateral: positive PERRL ENT: positive No signs of dehydration Neck: positive No JVD; negative Stiff neck Respiratory: positive Chest non-tender, No respiratory distress and Breath sounds nml Cardiovascular: positive Regular rate & rhythm, No murmur and No gallop Abdomen: positive Tenderness (Diffuse, generalized and worse in the lower quadrants), Abnml bowel sounds (Hypoactive) and Other (Minimal distention.) Skin: positive Color nml and Dry Extremities: positive Non-tender, Full ROM and Nml appearance Neurologic/Psychiatric: positive Oriented x3, CN's nml (2-12) and Motor nml Lab Results 02/22/25 06:00 02/22/25 06:00 Other Labs: Lab Results x24hrs 02/22/25 02/21/25 Range/Units 06:00 14:30 WBC 7.7 8.6 (4.8-10.8) x10^3/uL RBC 3.81 L 4.25 (4.20-5.40) 10^6/uL Hgb 11.6 L 12.7 (12.0-16.0) g/dL Hct 36.9 L 40.2 (37.0-47.0) % MCV 96.9 94.6 (81.0-99.0) fL MCH 30.4 29.9 (27.0-31.0) pg MCHC 31.4 L 31.6 L (32.0-36.0) g/dL RDW 13.4 13.2 (12.0-15.0) % Plt Count 183 188 (130-450) 10^3/uL MPV 10.6 11.2 H (7.9-10.8) fL Neut # (Auto) 6.2 7.3 H (1.5-6.6) 10^3/uL Lymph # (Auto) 0.7 L 0.7 L (1.5-3.5) 10^3/uL [place] # (Auto) 0.6 0.5 (0.0-1.0) 10^3/uL Eos # (Auto) 0.1 0.0 (0.0-0.7) 10^3/uL Baso # (Auto) 0.1 0.0 (0.0-0.1) 10^3/uL Absolute Nucleated RBC 0.00 0.00 x10^3/uL Nucleated RBC % 0.0 0.0 /100WBC Sodium 140 140 (135-145) mmol/L Potassium 3.9 4.1 (3.5-4.5) mmol/L Chloride 107 104 (101-111) mmol/L Carbon Dioxide 26 28 (21-32) mmol/L Anion Gap 7.0 8.0 (6-13) BUN 30 H 33 H (6-20) mg/dL Creatinine 1.2 1.3 (0.6-1.3) mg/dL Estimated GFR (MDRD) 46 L 42 L (>89) Glucose 80 98 (74-104) mg/dL Calcium 8.4 L 9.1 (8.5-10.3) mg/dL Total Bilirubin 1.1 H (0.2-1.0) mg/dL AST 17 (10-42) IU/L ALT 11 (10-60) IU/L Alkaline Phosphatase 88 (42-121) IU/L Total Protein 6.7 (6.4-8.9) g/dL Albumin 3.9 (3.2-5.5) g/dL Globulin 2.8 (2.1-4.2) g/dL Albumin/Globulin Ratio 1.4 (1.0-2.2) Lipase 22 (11-82) U/L Urine Color YELLOW Urine Clarity CLEAR (CLEAR) Urine pH 6.0 (5.0-7.5) PH Ur Specific [place] >=1.030 H (1.002-1.030) Urine Protein 30 H (NEGATIVE) mg/dL Urine Glucose (UA) NEGATIVE (NEGATIVE) mg/dL Urine Ketones TRACE (NEGATIVE) mg/dL Urine Occult Blood NEGATIVE (NEGATIVE) Urine Nitrite NEGATIVE (NEGATIVE) Urine Bilirubin SMALL H (NEGATIVE) Urine Urobilinogen 0.2 (NORMAL) (NORMAL) E.U./dL Ur Leukocyte Esterase NEGATIVE (NEGATIVE) Urine RBC 0-5 (0-5) /HPF Urine WBC 0-3 (0-5) /HPF Ur Squamous Epith Cells RARE Squamous (<= Few) Urine Bacteria Rare (None Seen) /HPF Urine Mucus Moderate Strands Ur Microscopic Review INDICATED Urine Culture Comments NOT INDICATED ABX Reporting Has patient been on IV antibiotics over the past 48 hours?: Yes Assessment/Plan Problem List (1) SBO (small bowel obstruction): Impression: Patient is still is not having any flatus. It has been 1 night. General surgery will be ordering a Gastrografin challenge. I will await those results. If the Gastrografin challenge does not have any success, she may have to go to the OR. I will add Compazine to her antiemetics. Pain is controlled with Dilaudid 0.5 mg IV push every 2 hours as needed (2) Stage IV carcinoma of ovary: Impression: Immune modulating agents. She will follow-up with her oncologist in the outpatient setting. Qualifiers: Laterality: unspecified laterality Qualified Code(s): C56.9 - Malignant neoplasm of unspecified ovary
--- NOTE | 2025-02-22 12:02 | PHARMACY PROGRESS NOTE ---
Best Possible Medication History Admit Date and Time: 02/21/25 1556 Home Medications Medication Instructions Recorded Confirmed Type betamethasone dipropionate 0.05 % 1 applic topical DAILY PRN skin 02/22/25 02/22/25 History topical cream irritation cholecalciferol (vitamin D3) 25 25 mcg PO DAILY 02/22/25 02/22/25 History mcg (1,000 unit) capsule (Vitamin D3) desonide 0.05 % topical cream 1 applic topical ONCE PRN skin 02/22/25 02/22/25 History irritation levothyroxine 75 mcg tablet 75 mcg PO DAILY 02/22/25 02/22/25 History (Synthroid) mecobalamin (vitamin B12) 1,000 1,000 mcg PO DAILY 02/22/25 02/22/25 History mcg chewable tablet Processed by: Pharmacy (Medication reconciliation completed by [employer]) Medications reviewed in ED?: No Medication History completed: Yes Patient Interview: Completed Secondary Source(s): Insurance records [facility] Statement: As the person ultimately responsible for medication therapy, providers are able to order a medication from an existing home medication list in [facility] via the "Reconcile Routine" prior to Confirmation of that medication by pit crew support worker. Such practice is discouraged except when the physician, in their clinical judgment, deems that a medical need exists for a medication without regard to previous use.
--- NOTE | 2025-02-22 13:24 | XRAY Report ---
PROCEDURE: XR SBFT Challenge Panel INDICATIONS: SBO vs Ileus COMPARISON: CT abdomen and pelvis 02/21/2025. CONTRAST: Gastrografin contrast administered via the nasogastric tube. FINDINGS: Enteric tube coursing into the stomach. There are multiple dilated loops of small bowel in the lower abdomen. There is increased fecal residue in the right colon. There is slow transit of oral contrast through the stomach and into the proximal small bowel. About 1 hour the contrast has transited into the left small bowel. The oral contrast is not seen past the si te of suspected obstruction in the left paramedian mid abdomen. Similar appearance on the 3 hour and 5 hour radiographs. No oral contrast is seen in the right colon. There is persistent oral contrast in the gastric fundus. IMPRESSION: Persistent dilated loops of small bowel. Lack of progression of oral contrast through the small bowel . Delayed transit of contrast through the stomach. Findings in keeping with persistent small bowel obstruction. Reviewed by: Carlitos Carcamo MD on 02/22/2025 1:22 PM PDT Approved by: Carlitos Carcamo MD on 02/22/2025 1:22 PM PDT Station ID: [id number]
--- NOTE | 2025-02-22 14:59 | PROVIDER PROGRESS NOTE ---
Progress Note Progress Note Progress Note: General Surgery Progress Note: Iqra has had continued abdominal cramping since this morning. She has not passed flatus or a BM. Her SB challenge study does not progress beyond the transition point and there is continued distention of a small bowel loop that is concerning for incarceration. I recommend immediate laparotomy. Labs reviewed. Consent: Iqra has been counseled for the procedure (Exploratory laparotomy, possible small bowel resection), it's indications, risks, benefits and expected outcome as well as alternative therapies. We specifically discussed risks associated with anesthesia, bleeding, infection, injury to surrounding structures which may require additional surgery, and the possible need for conversion to an open procedure. We also discussed the possible need for a blood transfusion with its risks and benefits. Iqra understands, agrees, and consents to the proposed operative strategy and requests that we proceed with the procedure as outlined in our discussion. Byron Medina MD, [facility] General Surgery Service
--- NOTE | 2025-02-22 15:33 | ANESTHESIA PROCEDURE NOTE ---
Pre-Anesthesia VS, & Labs Diagnosis Surgical Diagnosis:: bowel obstruction Procedure Procedure: Ex Lap Vitals Vital Signs: Temp Pulse Resp BP Pulse Ox 36.6 C 65 18 146/87 H 97 02/22/25 13:00 02/22/25 13:00 02/22/25 13:00 02/22/25 13:00 02/22/25 13:00 Height (in): 5 ft 9 in Weight (kg): 58 kg Body Mass Index: 18.8 BMI Classification: Normal NPO NPO: >8 hours Is Patient ?: No Lab Results Current Lab Results: Laboratory Tests 02/22/25 06:00: WBC 7.7, RBC 3.81 L, Hgb 11.6 L, Hct 36.9 L, MCV 96.9, MCH 30.4, MCHC 31.4 L, RDW 13.4, Plt Count 183, MPV 10.6, Neut # (Auto) 6.2, Lymph # (Auto) 0.7 L, [place] # (Auto) 0.6, Eos # (Auto) 0.1, Baso # (Auto) 0.1, Absolute Nucleated RBC 0.00, Nucleated RBC % 0.0, Sodium 140, Potassium 3.9, Chloride 107, Carbon Dioxide 26, Anion Gap 7.0, BUN 30 H, Creatinine 1.2, Estimated GFR (MDRD) 46 L, Glucose 80, Calcium 8.4 L 02/21/25 14:30: WBC 8.6, RBC 4.25, Hgb 12.7, Hct 40.2, MCV 94.6, MCH 29.9, MCHC 31.6 L, RDW 13.2, Plt Count 188, MPV 11.2 H, Neut # (Auto) 7.3 H, Lymph # (Auto) 0.7 L, [place] # (Auto) 0.5, Eos # (Auto) 0.0, Baso # (Auto) 0.0, Absolute Nucleated RBC 0.00, Nucleated RBC % 0.0, Sodium 140, Potassium 4.1, Chloride 104, Carbon Dioxide 28, Anion Gap 8.0, BUN 33 H, Creatinine 1.3, Estimated GFR (MDRD) 42 L, Glucose 98, Calcium 9.1, Total Bilirubin 1.1 H, AST 17, ALT 11, Alkaline Phosphatase 88, Total Protein 6.7, Albumin 3.9, Globulin 2.8, Albumin/Globulin Ratio 1.4, Lipase 22 Lab results reviewed: Yes 02/22/25 06:00 02/22/25 06:00 Meds/Allgy Home Medications Ambulatory Orders Medication Instructions Recorded Confirmed betamethasone dipropionate 0.05 % 1 applic topical DAILY PRN skin 02/22/25 02/22/25 topical cream irritation cholecalciferol (vitamin D3) 25 25 mcg PO DAILY 02/22/25 02/22/25 mcg (1,000 unit) capsule (Vitamin D3) desonide 0.05 % topical cream 1 applic topical ONCE PRN skin 02/22/25 02/22/25 irritation levothyroxine 75 mcg tablet 75 mcg PO DAILY 02/22/25 02/22/25 (Synthroid) mecobalamin (vitamin B12) 1,000 1,000 mcg PO DAILY 02/22/25 02/22/25 mcg chewable tablet Allergies Allergies Allergy/AdvReac Type Severity Reaction Status Date / Time No Known Drug Allergies Allergy Verified 02/21/25 13:35 PFSH Active Problems All Active Problems Nausea & vomiting (Acute) SBO (small bowel obstruction) (Acute) Medical History Medical History History of tear of meniscus of knee joint 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 Surgical History Surgical History History of appendectomy (~2018) incidental with ELIZABETH/BSO History of total abdominal hysterectomy and bilateral salpingo-oophorectomy (~2018) including appendectomy/debulking History of bowel resection (~2019) for bowel perforation occurring during during chemotherapy Family History Family History Father Colon cancer Mother Unknown clinical stage Brother Bicycle accident Social History Social History Smoking Status: Never smoker Second hand tobacco smoke exposure: No Do you dip or chew tobacco?: No Do you vape?: No Living arrangement: At home Marital Status: Living Condition: With spouse/s.o. More Information: not in contact with parents for decades. Estranged. 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 Retired: Yes Service: No Are you following a special diet: Yes (plant based for 1.5 years) POLST Patient has POLST: No POLST Status: Full Code (DPOA is spouse Marva Coleman) Anesthesia Exam (Expanded) Exam General: Alert and Mild distress Dental: WNL Mouth Openin Fingerbreadth Neck Mobility: Normal Mallampati classification: II Thyromental Distance: 4-6 cm Exam Exam Vital Signs: Vital Signs x48h Temp Pulse Resp BP Pulse Ox 02/22/25 13:00 36.6 C 65 18 146/87 H 97 02/22/25 08:58 36.7 C 68 16 130/87 96 Plan Plan Anesthesia Type: General Consent for Procedure(s) Verified and Reviewed: Yes Code Status: Attempt Resuscitation ASA Classification ASA classification: 3-Severe systemic disease Is this case an emergency?: Yes
[2025-02-22] MEDS ORDERED: PROPOFOL 200 MG/20 ML VIAL IVP ONE (15:40)
[2025-02-22] MEDS ORDERED: LIDOCAINE-PF 2% 10 ML AMP SUBQ ONE (15:40)
[2025-02-22] MEDS ORDERED: fentaNYL 100 MCG/2 ML VIAL ONE ×2 (15:41→17:57)
[2025-02-22] MEDS ORDERED: MIDAZOLAM 2 MG/2 ML VIAL ONE (15:41)
[2025-02-22] MEDS ORDERED: ROCURONIUM 50 MG/5 ML VIAL ONE (15:41)
[2025-02-22] MEDS ORDERED: KETAMINE 500 MG/10 ML VIAL ONE (15:45)
[2025-02-22] MEDS ORDERED: PHENYLEPHRINE HCL 0.5 MG/5 ML AMPULE ONE (16:02)
[2025-02-22] MEDS ORDERED: ePHEDrine 50 MG/ML VIAL IVP ONE (16:09)
[2025-02-22] MEDS ORDERED: ACETAMINOPHEN 1,000 MG/100 ML 1,000 MG/100 ML BAG IV ONE (16:39)
[2025-02-22] MEDS ORDERED: ONDANSETRON 4 MG/2 ML VIAL ONE ×2 (16:43→17:46)
[2025-02-22] MEDS ORDERED: DEXAMETHASONE 4 MG/ML VIAL ONE (16:43)
[2025-02-22] MEDS ORDERED: HYDROmorphone 1 MG/ML SYRINGE ONE (17:06)
[2025-02-22] MEDS ORDERED: SUGAMMADEX 200 MG/2 ML VIAL IVP ONE (17:06)
[2025-02-22] MEDS ORDERED: BUPIVACAINE 0.25% PF 30 ML VIAL ONE (17:13)
[2025-02-22] MEDS: LACTATED RINGERS 1,000 ML IV SCH ×2 (17:33→19:05)
--- NOTE | 2025-02-22 17:40 | OPERATIVE REPORT ---
Operative Report General Admit Date: 02/22/25 Procedure Data: Operation Date: 02/22/25 15:30 Proposed Procedures p Exploratory Laparotomy POSSIBLE BOWEL RESECTION(Not Applicable) - Byron Medina MD Anesthesia Type General Case Staff Anesthesia Provider: [place] Eduardo Assisting Provider: Manfred Bridges Case Times Procedure Start: 02/22/25 16:12 Procedure End: 02/22/25 17:20 Time out: 02/22/25 16:11 Other Other Information/Narrative: PROCEDURE DATE: 02/22/2025 PREOPERATIVE DIAGNOSIS: Iqra is a 60 year old female who has clinical, CT, and lab findings consistent with a small bowel obstruction. POSTOPERATIVE DIAGNOSIS: Complete small bowel obstruction due to adhesions and torsion of the existing [id number] anastomosis. NAME OF PROCEDURE: Exploratory laparotomy, adhesiolysis SURGEON: Byron Medina MD, FACS PILE FAB[employer]IC KNITTER: Manfred Bridges MD, FACS ANESTHESIA: General endotracheal. ESTIMATED BLOOD LOSS: 10 mL. DRAINS: NGT, Ramos SPECIMEN: 20 cm segment of mid-jejunum which contained the dilated/obstructed anastomosis and associated mesentery; Cultures of necrotic node; Ascites for cytology FINDINGS: Dilated proximal small bowel, decompressed terminal ileum, multiple intra-abdominal adhesions, a 3 mm thick band of fibrous tissue causing obstruction and torsion of the anastomosis, presumed necrotic/firm nodes near the anastomosis which were sent with the specimen, absent ovaries, fallopian tubes, uterus, and omentum, normal colon, normal liver, clear ascites in pelvis. No evidence of peritoneal implants or carcinomatosis. COMPLICATIONS: None DESCRIPTION OF OPERATION: After consent for the procedure was obtained, the patient was brought to the operating room and placed into the the supine position. General endotracheal anesthesia was then administered. Venous compression stockings were placed on the lower extremities and a ramos catheter was placed into the bladder. A surgical time-out was performed indicating the patient and the procedure to be performed. The abdomen was prepped with alcohol- free chloroprep, and draped in a sterile fashion. A midline lul-umbilical incision was used to gain exposure of the abdominal cavity. Clear ascites was identified, aspirated from the abdominal cavity and sent for cytology. The small bowel was very dilated and contained air and fluid. The cecum was identified along with the terminal ileum. The terminal ileum was followed proximally. A single thick adhesion from the pelvic wall to an adjacent segment of small bowel was the cause of obstruction and resulted in a twist of the small bowel just distal to the anastomosis. The [id number] anastomosis was markedly dilated, tense and air-filled. All bowel was viable. Transection of the adhesion eliminate the bowel obstruction. Attention was directed to the cecum and the small bowel was followed to the Ligament of Treitz transecting all visible adhesions. A segment of small bowel was adherent to a mesentery nodule near the anastomosis. The nodule causing the adhesion appeared to be a necrotic or infected lymph node. The tissue was cultured as there appeared to be a small amount of turbid fluid associated with the nodule. There was no invasion into the bowel wall by the nodule. Once all of the adhesions were transected, it became clear that the dilated anastomosis would be a potential site for a recurrent obstruction due to it's poor function and tendency to twist. Excision of the dysfunctional jejunal anastomosis was planned. Atraumatic bowel clamps were placed proximal and distal to the area of abnormal jejunum to be excised. A NAA stapling device was used to transect the small bowel proximally and distally in areas of normal, pliable intestine. The mesentery to the diseased bowel segment was transected using a LigaSure device. The specimen contained a large nodule which we presumed was a necrotic lymph node. The specimen was removed from the field. A [id number] entero-enterostomy was then performed using a NAA stapling device. The inner aspect of the bowel was inspected and there was no evidence of staple line bleeding. The conjoined ostomy was closed with an additional fire of the NAA device reinforced with a running-locking 3-0 silk suture. At the end of the anastomosis, the anastomosis was under no tension, had an excellent blood supply and lumen, and was without evidence of a leak. The mesenteric rent was approximated with a running 3-0 Vicryl suture and the heel of the anastomosis was reinforced with a 3-0 silk suture. The bowel was returned to the abdominal cavity. Anesthesia removed the 14F NGT for the tracheal intubation and replaced it with an 18F NGT. The tip of the new NGT was confirmed to be within the gastric lumen. A general exploration of the abdomen was then performed and revealed the above noted findings. The small bowel was returned into the peritoneal cavity. The abdominal cavity was then irrigated with 1 liter of warm, sterile saline. The irrigant was aspirated. A search for sponges, packs, needles and instruments was performed. None were identified in the peritoneal cavity. The sponge, pack, needle, and instrument counts were relayed to me as correct. The linea alba was then closed with a running looped #1 PDS suture. The subcuta neous tissue was infiltrated with 30 ml of Marcaine. The skin was approximated with skin juan and the wound dressed with 4 x 4 gauze and tape over Xeroform gauze. The patient tolerated the procedure well and was brought to the PACU extubated and with stable vital signs.
[2025-02-22] MEDS ORDERED: ATROPINE ABBOJECT 1 MG/10 ML SYRINGE IVP PRN (17:51)
[2025-02-22] MEDS ORDERED: NALOXONE 0.4 MG/ML VIAL IVP PRN (17:51)
[2025-02-22] MEDS ORDERED: MORPHINE 2 MG/ML CARPUJECT IVP PRN (17:51)
[2025-02-22] MEDS ORDERED: ePHEDrine 50 MG/ML VIAL IVP PRN (17:51)
[2025-02-22] MEDS ORDERED: HYDROmorphone 0.5 MG/0.5 ML SYRINGE ONE (17:58)
[2025-02-22] MEDS: ONDANSETRON 4 MG/2 ML VIAL IVP PRN (17:58)
[2025-02-22] MEDS: HYDROmorphone 0.5 MG/0.5 ML SYRINGE IVP PRN (17:58)
[2025-02-22] MEDS: fentaNYL 100 MCG/2 ML VIAL IVP PRN (18:07)
[2025-02-22 18:17] VITALS: BP 152/95
[2025-02-22] MEDS ORDERED: DESONIDE 0.05% TOP PRN (18:38)
[2025-02-22] MEDS ORDERED: TRIAMCINOLONE 0.5% CREAM 15 GM TUBE TOP PRN (18:45)
--- NOTE | 2025-02-22 19:24 | ANESTHESIA POST OP EVALUATION ---
Anesthesia Post Eval Post Anesthesia Eval Vitals: Last Vital Signs Temp 36.6 C 02/22/25 19:10 Pulse 93 02/22/25 19:10 Resp 16 02/22/25 19:10 BP 135/84 H 02/22/25 19:10 Pulse Ox 97 02/22/25 19:10 CV Function Including HR & BP: Stable Pain Control: Satisfactory Nausea & Vomiting: Negative Mental Status: Baseline Respiratory Status: Airway Patent Hydration Status: Satisfactory Anesthesia Complications: None
[2025-02-22] MEDS: SODIUM CHLORIDE FLUSH 0.9% 10 ML SYRINGE IVP PRN (20:48)
[2025-02-23 05:29] LABS: BASOPHILS % (AUTO) 0.2 %; HGB - HEMOGLOBIN 10.9 g/dL (12.0-16.0); LYMPHOCYTES # (AUTO) 0.3 10^3/uL (1.5-3.5); LYMPHOCYTES % (AUTO) 4.6 %; MEAN CORPUSCULAR HEMOGLOBIN 30.6 pg (27.0-31.0); MEAN CORPUSCULAR HGB CONC 32.1 g/dL (32.0-36.0); MEAN CORPUSCULAR VOLUME 95.5 fL (81.0-99.0); MEAN PLATELET VOLUME 10.6 fL (7.9-10.8); MONOCYTES # (AUTO) 0.4 10^3/uL (0.0-1.0); MONOCYTES % (AUTO) 6.2 %; NEUTROPHILS # (AUTO) 5.6 10^3/uL (1.5-6.6); NEUTROPHILS % (AUTO) 88.8 %; PLT - PLATELET COUNT 155 10^3/uL (130-450); RED BLOOD COUNT 3.56 10^6/uL (4.20-5.40); RED CELL DISTRIBUTION WIDTH 13.2 % (12.0-15.0); WHITE BLOOD COUNT 6.3 x10^3/uL (4.8-10.8)
[2025-02-23 05:44] LABS: CALCIUM 7.9 mg/dL (8.5-10.3); CREATININE 1.1 mg/dL (0.6-1.3); POTASSIUM 3.9 mmol/L (3.5-4.5)
--- NOTE | 2025-02-23 06:32 | PROVIDER PROGRESS NOTE ---
Progress Note Progress Note Progress Note: General Surgery Progress Note Hospital Day # 3 - SBO POD # 1, Exploratory laparotomy, lysis of adhesions, excision small bowel segment Code Status: Full ASSESSMENT: 1) SBO - resolved. No immediate post-op issues PLAN: 1) Ambulate with assistance 2) Discontinue ramos 3) Tylenol PO 4) NGT to LIS 5) Decrease IV fluids to 75 ml/hr <><><><><> PERTINENT INTERVAL ISSUES: None S: Feels better; Incisional discomfort only; No nausea or vomiting despite NGT being unclamped all night OBJECTIVE: I/O: 2748/2288 VS: BP 140/87; P 82; RR 16; T 37 EXAMINATION: MENTAL STATUS: AAO; Comfortable EYES: Pupils equal, round and reactive to light, sclera anicteric, EARS, NOSE, MOUTH, THROAT: Normal hearing, Oral mucous membranes moist and without lesions; NGT in place - not attached to wall suction NECK: No crepitus, lymphadenopathy, or thyromegaly LUNGS: Clear to auscultation without wheezing; No use of accessory muscles to breathe CARDIOVASCULAR: Heart-NSR without murmurs; ABD: Soft, non-tender, non-distended; Incision clean and dry; few BS EXTREMITIES: No clubbing, cyanosis, infections SKIN: Anicteric; No rashes, lesions, ulcerations LABS: H&H [10.9/34 WBC 6.3; PLT 155; NA [141; K 3.9; Cr 1.1; Glu 107 CULTURES: Pending PATH/CYTOLOGY Pending IMAGING: None today ANTIMICROBIALS: rophylactic completed PAIN CONTROL: Dilaudid IV prn, VTEP: Chemical: Enoxaparin, 40mg, SQ, QD Mechanical: SCD Byron Medina MD, FACS General Surgery Service
[2025-02-23] MEDS: LEVOTHYROXINE 75 MCG TABLET PO SCH (06:36)
[2025-02-23] MEDS: HYDROmorphone 0.5 MG/0.5 ML SYRINGE IVP PRN (07:46)
[2025-02-23] MEDS: CHOLECALCIFEROL 25 MCG TABLET PO SCH (08:52)
[2025-02-23] MEDS: ACETAMINOPHEN 325 MG TABLET PO PRN (08:52)
[2025-02-23] MEDS: CYANOCOBALAMIN 500 MCG TABLET PO SCH (08:52)
--- NOTE | 2025-02-23 16:32 | PROVIDER PROGRESS NOTE ---
Subjective Prog Note Date Prog Note Date: 02/23/25 Prog Note Time: 15:12 Subjective Pt reports feeling: Improved Subjective: Iqra is a 60-year-old female with a history of stage IV ovarian cancer who presented to the ED on 02/21 with lower abdominal pain, nausea, and vomiting since Monday 02/19. Her last BM was Monday 02/19. She underwent an exploratory laparotomy and small bowel resection yesterday. Today, she reports incisional pain 02/27, but no nausea or vomiting with NG tube in place. She has not yet passed flatus this afternoon. Current Medications Current Medications Current Medications: Current Medications Generic Name Dose Route Start Last Admin Trade Name Freq PRN Reason Stop Dose Admin Acetaminophen 650 mg 02/23/25 06:28 02/23/25 08:52 Acetaminophen 325 Mg Tablet PO 650 mg Q4HR PRN Administration Pain or Fever > 38C (100.4F) Cholecalciferol 25 mcg 02/23/25 09:00 02/23/25 08:52 Cholecalciferol 25 Mcg Tablet PO 25 mcg DAILY YURIDIA Administration Cyanocobalamin 1,000 mcg 02/23/25 09:00 02/23/25 08:52 Cyanocobalamin 500 Mcg Tablet PO 1,000 mcg DAILY YURIDIA Administration Enoxaparin Sodium 40 mg 02/22/25 09:00 02/23/25 08:51 Enoxaparin 40 Mg/0.4 Ml Syringe SUBQ 40 mg DAILY YURIDIA Administration Hydromorphone HCl 0.5 mg 02/21/25 17:47 02/23/25 10:14 Hydromorphone 0.5 Mg/0.5 Ml Syringe IVP 0.5 mg Q2H PRN Administration Pain 8 to 10 Hydromorphone HCl 0.5 mg 02/22/25 18:38 02/23/25 07:46 Hydromorphone 0.5 Mg/0.5 Ml Syringe IVP 0.5 mg Q2H PRN Administration Severe Pain (Level 7-10) Lactated Ringer's 1,000 mls @ 75 mls/hr 02/22/25 18:38 02/23/25 05:25 Lr IV 150 mls/hr .[id number] YURIDIA Administration Levothyroxine Sodium 75 mcg 02/23/25 07:00 02/23/25 06:36 Levothyroxine 75 Mcg Tablet PO 75 mcg QDAC YURIDIA Administration Ondansetron HCl 4 mg 02/21/25 17:47 02/22/25 08:59 Ondansetron Odt 4 Mg Tablet TL 4 mg Q6HR PRN Administration Nausea / Vomiting Ondansetron HCl 4 mg 02/21/25 17:47 Ondansetron 4 Mg/2 Ml Vial IVP Q6HR PRN Nausea / Vomiting Sodium Chloride 10 ml 02/21/25 17:47 02/22/25 20:48 Sodium Chloride Flush 0.9% 10 Ml Syringe IVP 10 ml PRN PRN Administration NEEDED PER PROVIDER ORDERS Sodium Chloride 10 ml 02/21/25 17:47 02/23/25 08:52 Sodium Chloride Flush 0.9% 10 Ml Syringe IVP 10 ml 0100,0900,1700 YURIDIA Administration Triamcinolone Acetonide 1 applic 02/22/25 18:45 Triamcinolone 0.5% Cream 15 Gm Tube TOP DAILY PRN skin irritation Objective Vital Signs/Intake & Output Reviewed Vital Signs: Yes Vital Signs: Vital Signs x48h Temp Pulse Resp BP Pulse Ox O2 Flow Rate 02/23/25 11:51 36.8 C 67 16 135/81 H 94 0 02/23/25 11:36 36.8 C 67 16 135/81 H 94 02/23/25 07:46 36.7 C 75 16 140/82 H 94 Intake & Output: Intake & Output 02/20/25 02/21/25 02/22/25 02/23/25 23:59 23:59 23:59 23:59 Intake Total 1030 / 1030 2778 / 2778 1820 / 1820 Output Total 360 / 360 300 / 300 Balance 1030 / 1030 2418 / 2418 1520 / 1520 Weight (kg) 58 kg 58 kg Objective General Appearance: positive No acute distress and Alert Eyes Bilateral: positive Normal inspection and PERRL Abdomen: positive No distention and Other (Incisional pain. Covered with bandage. ) Skin: positive Color nml and No rash Neurologic/Psychiatric: positive Oriented x3 and Mood/affect nml Lab Results 02/23/25 05:16 02/23/25 05:16 Other Labs: Lab Results x24hrs 02/23/25 Range/Units 05:16 WBC 6.3 (4.8-10.8) x10^3/uL RBC 3.56 L (4.20-5.40) 10^6/uL Hgb 10.9 L (12.0-16.0) g/dL Hct 34.0 L (37.0-47.0) % MCV 95.5 (81.0-99.0) fL MCH 30.6 (27.0-31.0) pg MCHC 32.1 (32.0-36.0) g/dL RDW 13.2 (12.0-15.0) % Plt Count 155 (130-450) 10^3/uL MPV 10.6 (7.9-10.8) fL Neut # (Auto) 5.6 (1.5-6.6) 10^3/uL Lymph # (Auto) 0.3 L (1.5-3.5) 10^3/uL [place] # (Auto) 0.4 (0.0-1.0) 10^3/uL Eos # (Auto) 0.0 (0.0-0.7) 10^3/uL Baso # (Auto) 0.0 (0.0-0.1) 10^3/uL Absolute Nucleated RBC 0.00 x10^3/uL Nucleated RBC % 0.0 /100WBC Sodium 141 (135-145) mmol/L Potassium 3.9 (3.5-4.5) mmol/L Chloride 108 (101-111) mmol/L Carbon Dioxide 27 (21-32) mmol/L Anion Gap 6.0 (6-13) BUN 29 H (6-20) mg/dL Creatinine 1.1 (0.6-1.3) mg/dL Estimated GFR (MDRD) 51 L (>89) Glucose 107 H (74-104) mg/dL Calcium 7.9 L (8.5-10.3) mg/dL Diagnostic Imaging Diagnostic Imaging Results: positive Final report reviewed Assessment/Plan Problem List (1) SBO (small bowel obstruction): Impression: The patient's symptoms of abdominal pain, nausea and vomiting began on Saturday, 02/19. She presented to the ED on 02/21 and was admitted. She had an abdominal CT that showed a small bowel obstruction. A gastrografin challenged showed dilated loops of the small bowel and inability of contrast to pass the stomach. Patient underwent exploratory laparotomy and successful bowel resection on 02/22. - Today, she has incisional pain 02/27. She has not had flatus, but denies nausea or vomiting. NG tube is still in place. She is afebrile and her WBC count is 6.3. - Continue monitoring for bowel movement and passing of flatus - Continue NG tube to LIS - Continue IVF, LR at 75 cc/hr - Continue pain control, IV Dilaudid 0.5mg q2hrs as needed (2) Stage IV carcinoma of ovary: Impression: - Pertinent history: stage IV ovarian cancer diagnosed in 2019, oophorectomy, and hysterectomy. - Currently just on immunotherapy; effectively in remission. Qualifiers: Laterality: unspecified laterality Qualified Code(s): C56.9 - Malignant neoplasm of unspecified ovary
[2025-02-24 05:44] LABS: HCT - HEMATOCRIT 29.4 % (37.0-47.0); HGB - HEMOGLOBIN 9.3 g/dL (12.0-16.0); MEAN CORPUSCULAR HEMOGLOBIN 30.6 pg (27.0-31.0); MEAN CORPUSCULAR HGB CONC 31.6 g/dL (32.0-36.0); MEAN CORPUSCULAR VOLUME 96.7 fL (81.0-99.0); MEAN PLATELET VOLUME 10.3 fL (7.9-10.8); RED BLOOD COUNT 3.04 10^6/uL (4.20-5.40); RED CELL DISTRIBUTION WIDTH 13.2 % (12.0-15.0); WHITE BLOOD COUNT 5.7 x10^3/uL (4.8-10.8)
[2025-02-24 06:05] LABS: CREATININE 0.9 mg/dL (0.6-1.3); MAGNESIUM 1.8 mg/dL (1.7-2.3); POTASSIUM 3.6 mmol/L (3.5-4.5)
--- NOTE | 2025-02-24 06:39 | PROVIDER PROGRESS NOTE ---
Progress Note Progress Note Progress Note: General Surgery Progress Note Hospital Day # 4 - SBO POD # 1, Exploratory laparotomy, lysis of adhesions, excision small bowel segment Code Status: Full ASSESSMENT: 1) SBO - resolved. Bowel function returning PLAN: 1) Clamp NGT and start clear liquid diet. 2) Remove NGT if no N/V by noon 3) Tylenol PO 4) Continue ambulation 5) Decrease maintenance IV fluids <><><><><> PERTINENT INTERVAL ISSUES: None S: Feels better; Ambulated yesterday. No nausea or vomiting. Feels as if she will have a BM soon OBJECTIVE: I/O: 2274/2249 VS: BP 126/71; P 72; RR 16; T 36.6 EXAMINATION: MENTAL STATUS: AAO; Comfortable EYES: Pupils equal, round and reactive to light, sclera anicteric, EARS, NOSE, MOUTH, THROAT: Normal hearing, Oral mucous membranes moist and without lesions; NGT in place - scant output NECK: No crepitus, lymphadenopathy, or thyromegaly LUNGS: Clear to auscultation without wheezing; No use of accessory muscles to breathe CARDIOVASCULAR: Heart-NSR without murmurs; ABD: Soft, non-tender, non-distended; Incision clean and dry; ACTIVE BS EXTREMITIES: No clubbing, cyanosis, infections SKIN: Anicteric; No rashes, lesions, ulcerations LABS: H&H 9.3/29.4; WBC 65.7; PLT 141; NA 138; K 3.6; Cr 0.9; Glu 68 CULTURES: Gm stain - NOS PATH/CYTOLOGY Pending IMAGING: None today ANTIMICROBIALS: Prophylactic completed PAIN CONTROL: Dilaudid IV prn VTEP: Chemical: Enoxaparin, 40mg, SQ, QD Mechanical: SCD Byron Medina MD, FACS General Surgery Service
--- NOTE | 2025-02-24 11:48 | PROVIDER PROGRESS NOTE ---
Subjective Prog Note Date Prog Note Date: 02/24/25 Prog Note Time: 11:14 Subjective Pt reports feeling: No change Subjective: Iqra is a 60-year-old female with a history of stage IV ovarian cancer who was admitted on 02/21 for a partial small bowel obstruction. She underwent an exploratory laparotomy and small bowel resection on 02/22. Today, she reports that she has not had flatus yet. She has been walking around the hospital and is now on a clear liquid diet. She reports that she feels a little bloated, but she has less pain than yesterday. She denies n/v since her NGT was removed. She is chewing gum now in hopes that she will have flatus/BM soon. Current Medications Current Medications Current Medications: Current Medications Generic Name Dose Route Start Last Admin Trade Name Freq PRN Reason Stop Dose Admin Acetaminophen 650 mg 02/23/25 06:28 02/23/25 21:49 Acetaminophen 325 Mg Tablet PO 650 mg Q4HR PRN Administration Pain or Fever > 38C (100.4F) Cholecalciferol 25 mcg 02/23/25 09:00 02/24/25 08:47 Cholecalciferol 25 Mcg Tablet PO 25 mcg DAILY YURIDIA Administration Cyanocobalamin 1,000 mcg 02/23/25 09:00 02/24/25 08:47 Cyanocobalamin 500 Mcg Tablet PO 1,000 mcg DAILY YURIDIA Administration Enoxaparin Sodium 40 mg 02/22/25 09:00 02/24/25 08:48 Enoxaparin 40 Mg/0.4 Ml Syringe SUBQ Not Given DAILY YURIDIA Hydromorphone HCl 0.5 mg 02/21/25 17:47 02/24/25 10:02 Hydromorphone 0.5 Mg/0.5 Ml Syringe IVP 0.5 mg Q2H PRN Administration Pain 8 to 10 Hydromorphone HCl 0.5 mg 02/22/25 18:38 02/23/25 07:46 Hydromorphone 0.5 Mg/0.5 Ml Syringe IVP 0.5 mg Q2H PRN Administration Severe Pain (Level 7-10) Lactated Ringer's 1,000 mls @ 25 mls/hr 02/22/25 18:38 02/24/25 06:53 Lr IV 25 mls/hr .Q40H YURIDIA Administration Levothyroxine Sodium 75 mcg 02/23/25 07:00 02/24/25 06:04 Levothyroxine 75 Mcg Tablet PO 75 mcg QDAC YURIDIA Administration Ondansetron HCl 4 mg 02/21/25 17:47 02/22/25 08:59 Ondansetron Odt 4 Mg Tablet TL 4 mg Q6HR PRN Administration Nausea / Vomiting Ondansetron HCl 4 mg 02/21/25 17:47 Ondansetron 4 Mg/2 Ml Vial IVP Q6HR PRN Nausea / Vomiting Sodium Chloride 10 ml 02/21/25 17:47 02/22/25 20:48 Sodium Chloride Flush 0.9% 10 Ml Syringe IVP 10 ml PRN PRN Administration NEEDED PER PROVIDER ORDERS Sodium Chloride 10 ml 02/21/25 17:47 02/24/25 08:48 Sodium Chloride Flush 0.9% 10 Ml Syringe IVP 10 ml 0100,0900,1700 YURIDIA Administration Triamcinolone Acetonide 1 applic 02/22/25 18:45 Triamcinolone 0.5% Cream 15 Gm Tube TOP DAILY PRN skin irritation Objective Vital Signs/Intake & Output Reviewed Vital Signs: Yes Vital Signs: Vital Signs x48h Temp Pulse Resp BP Pulse Ox 02/24/25 07:31 36.3 C L 70 18 128/70 96 02/24/25 05:00 36.6 C 72 16 126/71 95 Intake & Output: Intake & Output 02/21/25 02/22/25 02/23/25 02/24/25 23:59 23:59 23:59 23:59 Intake Total 1030 / 1030 2778 / 2778 3214 / 3214 654 / 654 Output Total 360 / 360 325 / 325 Balance 1030 / 1030 2418 / 2418 2889 / 2889 654 / 654 Weight (kg) 58 kg 58 kg Objective General Appearance: positive No acute distress and Alert ENT: positive ENT inspection nml, Pharynx nml and No signs of dehydration Neck: positive Nml inspection, Thyroid nml and No JVD Respiratory: positive Chest non-tender, No respiratory distress and Breath sounds nml; negative Wheezes, Rales or Rhonchi Cardiovascular: positive Regular rate & rhythm, No murmur and No gallop; negative Tachycardia Abdomen: positive Non-tender, No distention and Other (surgical scar midline; bandage in place) Back: positive Nml inspection; negative CVA tenderness (R) or CVA tenderness (L) Skin: positive Color nml, No rash, Warm and Dry Extremities: positive Non-tender, Full ROM, Nml appearance and No pedal edema Neurologic/Psychiatric: positive Oriented x3 and Mood/affect nml Lab Results 02/24/25 05:25 02/24/25 05:25 Other Labs: Lab Results x24hrs 02/24/25 Range/Units 05:25 WBC 5.7 (4.8-10.8) x10^3/uL RBC 3.04 L (4.20-5.40) 10^6/uL Hgb 9.3 L (12.0-16.0) g/dL Hct 29.4 L (37.0-47.0) % MCV 96.7 (81.0-99.0) fL MCH 30.6 (27.0-31.0) pg MCHC 31.6 L (32.0-36.0) g/dL RDW 13.2 (12.0-15.0) % Plt Count 141 (130-450) 10^3/uL MPV 10.3 (7.9-10.8) fL Sodium 138 (135-145) mmol/L Potassium 3.6 (3.5-4.5) mmol/L Chloride 104 (101-111) mmol/L Carbon Dioxide 27 (21-32) mmol/L Anion Gap 7.0 (6-13) BUN 24 H (6-20) mg/dL Creatinine 0.9 (0.6-1.3) mg/dL Estimated GFR (MDRD) 64 L (>89) Glucose 68 L (74-104) mg/dL Calcium 8.0 L (8.5-10.3) mg/dL Magnesium 1.8 (1.7-2.3) mg/dL Diagnostic Imaging Diagnostic Imaging Results: positive Final report reviewed Assessment/Plan Problem List (1) SBO (small bowel obstruction): Impression: The patient reports that she still has not passed any flatus. She has been walking around the hospital and is now tolerating clear liquids. Her NGT has been removed and she denies n/v. She still has no flatus or BM. -Clear liquid diet. -Pain: Tylenol PO/Dilaudid IV PRN -Pathology pending -Prophylactic antibiotics done -VTEP: Enoxaparin PO (2) Stage IV carcinoma of ovary: Impression: - Pertinent history: stage IV ovarian cancer diagnosed in 2019, oophorectomy, and hysterectomy. - Currently just on immunotherapy; effectively in remission. Qualifiers: Laterality: unspecified laterality Qualified Code(s): C56.9 - Malignant neoplasm of unspecified ovary
--- NOTE | 2025-02-24 16:46 | PROVIDER PROGRESS NOTE ---
Progress Note Progress Note Progress Note: General Surgery Progress Note NGT is out and she is comfortable. No flatus yet. No nausea or emesis. Abdomen is soft and dressing removed. Wound looks healthy at this time. Plan: Sips and chips until bowel activity then RODNEY Medina MD, FACS General Surgery Service
--- NOTE | 2025-02-25 09:21 | PROVIDER PROGRESS NOTE ---
Progress Note Progress Note Progress Note: General Surgery Progress Note S: Feels bloated; No nausea but also no flatus. Has been ambulating and taking clears. O: VSS afeb; Abdomen slightly distended with tympanic percussion. Midline wound clean and dry; No cellulitis or infection. Active bowel sounds. No tenderness. KUB - most of intestinal gas is in the colon A: Colonic ileus P: Check Mg, Phos, K; Dulcolax suppository today Byron Medina MD, FACS General Surgery Service
[2025-02-25] MEDS ORDERED: BISACODYL 10 MG SUPP PR PRN (09:24)
--- NOTE | 2025-02-25 09:33 | XRAY Report ---
PROCEDURE: XR Abdomen 1 V INDICATIONS: abd distension TECHNIQUE: One view of the abdomen acquired. COMPARISON: Small bowel follow-through challenge with Gastrografin dated 02/22/2025. FINDINGS: Surgical changes and devices: Vertical midline skin juan.. Bowel: The contrast is now in the right colon. The colonic loops are dilated greater than the small bowel loops. Consider colonic ileus. Soft tissues: No suspicious abdominal calcifications. Visualized solid organ contours appear normal in size. Bones: No suspicious bony lesions. IMPRESSION: Suspect colonic ileus. Reviewed by: Dhruv Forrester MD on 02/25/2025 9:32 AM PDT Approved by: Dhruv Forrester MD on 02/25/2025 9:32 AM PDT Station ID: [id number]
[2025-02-25] MEDS: BISACODYL 10 MG SUPP PR ONE (09:40)
--- NOTE | 2025-02-25 10:26 | PROVIDER PROGRESS NOTE ---
Subjective Subjective Pt reports feeling: No change Subjective: This morning, patient has still not passed gas. She notes some increased distention from yesterday. She also has some discomfort related to that. She has minimal incisional pain. Current Medications Current Medications Current Medications: Current Medications Generic Name Dose Route Start Last Admin Trade Name Freq PRN Reason Stop Dose Admin Acetaminophen 650 mg 02/23/25 06:28 02/23/25 21:49 Acetaminophen 325 Mg Tablet PO 650 mg Q4HR PRN Administration Pain or Fever > 38C (100.4F) Bisacodyl 10 mg 02/25/25 09:24 Bisacodyl 10 Mg Supp MS DAILY PRN Constipation Cholecalciferol 25 mcg 02/23/25 09:00 02/25/25 08:25 Cholecalciferol 25 Mcg Tablet PO 25 mcg DAILY YURIDIA Administration Cyanocobalamin 1,000 mcg 02/23/25 09:00 02/25/25 08:25 Cyanocobalamin 500 Mcg Tablet PO 1,000 mcg DAILY YURIDIA Administration Enoxaparin Sodium 40 mg 02/22/25 09:00 02/25/25 08:25 Enoxaparin 40 Mg/0.4 Ml Syringe SUBQ Not Given DAILY YURIDIA Hydromorphone HCl 0.5 mg 02/22/25 18:38 02/25/25 09:48 Hydromorphone 0.5 Mg/0.5 Ml Syringe IVP 0.5 mg Q2H PRN Administration Severe Pain (Level 7-10) Lactated Ringer's 1,000 mls @ 25 mls/hr 02/22/25 18:38 02/24/25 18:43 Lr IV Not Given .Q40H YURIDIA Levothyroxine Sodium 75 mcg 02/23/25 07:00 02/25/25 06:27 Levothyroxine 75 Mcg Tablet PO 75 mcg QDAC YURIDIA Administration Ondansetron HCl 4 mg 02/21/25 17:47 02/22/25 08:59 Ondansetron Odt 4 Mg Tablet TL 4 mg Q6HR PRN Administration Nausea / Vomiting Ondansetron HCl 4 mg 02/21/25 17:47 Ondansetron 4 Mg/2 Ml Vial IVP Q6HR PRN Nausea / Vomiting Sodium Chloride 10 ml 02/21/25 17:47 02/22/25 20:48 Sodium Chloride Flush 0.9% 10 Ml Syringe IVP 10 ml PRN PRN Administration NEEDED PER PROVIDER ORDERS Sodium Chloride 10 ml 02/21/25 17:47 02/25/25 08:25 Sodium Chloride Flush 0.9% 10 Ml Syringe IVP Not Given 0100,0900,1700 [facility] Triamcinolone Acetonide 1 applic 02/22/25 18:45 Triamcinolone 0.5% Cream 15 Gm Tube TOP DAILY PRN skin irritation Objective Vital Signs/Intake & Output Reviewed Vital Signs: Yes Vital Signs: Vital Signs x48h Temp Pulse Resp BP Pulse Ox 02/25/25 07:31 97.5 F L 70 16 135/90 H 96 02/25/25 05:05 98.6 F 75 16 137/83 H 98 Intake & Output: Intake & Output 02/22/25 02/23/25 02/24/25 02/25/25 23:59 23:59 23:59 23:59 Intake Total 2778 / 2778 3214 / 3214 1444 / 1444 550 / 550 Output Total 360 / 360 325 / 325 Balance 2418 / 2418 2889 / 2889 1444 / 1444 550 / 550 Weight (kg) 58 kg Objective General Appearance: positive No acute distress and Alert ENT: positive ENT inspection nml, Pharynx nml and No signs of dehydration Neck: positive Nml inspection, Thyroid nml and No JVD Respiratory: positive Chest non-tender, No respiratory distress and Breath sounds nml; negative Wheezes, Rales or Rhonchi Cardiovascular: positive Regular rate & rhythm, No murmur and No gallop; negative Tachycardia Abdomen: positive Non-tender and Other (surgical scar midline; bandage in place); negative No distention (Mild distension ) Back: positive Nml inspection; negative CVA tenderness (R) or CVA tenderness (L) Skin: positive Color nml, No rash, Warm and Dry Extremities: positive Non-tender, Full ROM, Nml appearance and No pedal edema Neurologic/Psychiatric: positive Oriented x3 and Mood/affect nml Lab Results 02/24/25 05:25 02/25/25 09:55 Other Labs: Lab Results x24hrs 02/24/25 Range/Units 05:25 WBC 5.7 (4.8-10.8) x10^3/uL RBC 3.04 L (4.20-5.40) 10^6/uL Hgb 9.3 L (12.0-16.0) g/dL Hct 29.4 L (37.0-47.0) % MCV 96.7 (81.0-99.0) fL MCH 30.6 (27.0-31.0) pg MCHC 31.6 L (32.0-36.0) g/dL RDW 13.2 (12.0-15.0) % Plt Count 141 (130-450) 10^3/uL MPV 10.3 (7.9-10.8) fL Sodium 138 (135-145) mmol/L Potassium 3.6 (3.5-4.5) mmol/L Chloride 104 (101-111) mmol/L Carbon Dioxide 27 (21-32) mmol/L Anion Gap 7.0 (6-13) BUN 24 H (6-20) mg/dL Creatinine 0.9 (0.6-1.3) mg/dL Estimated GFR (MDRD) 64 L (>89) Glucose 68 L (74-104) mg/dL Calcium 8.0 L (8.5-10.3) mg/dL Magnesium 1.8 (1.7-2.3) mg/dL Diagnostic Imaging Diagnostic Imaging Results: positive Final report reviewed Assessment/Plan Problem List (1) SBO (small bowel obstruction): Impression: Patient has extensive history of stage IV ovarian cancer s/p nephrectomy and hysterectomy. Multiple abdominal surgeries. CT abdomen/pelvis completed 02/21 shows small bowel obstruction with transition point in left lower quadrant. She underwent surgery on 02/22: Completed a exploratory laparotomy, removal of adhesions. Since then, her NG tube has been removed, she is on a clear liquid diet. Still has not passed any flatus. Abdominal x-ray was repeated, and does show colonic dilatation, suspect colonic ileus. General Surgery spoken with: Will trial Dulcolax suppository. Continue pain control with p.o. Tylenol, IV Dilaudid. Continue gentle IV fluid rehydration. (2) Stage IV carcinoma of ovary: Impression: Pertinent history: stage IV ovarian cancer diagnosed in 2019, oophorectomy, and hysterectomy. Currently just on immunotherapy; effectively in remission. Qualifiers: Laterality: unspecified laterality Qualified Code(s): C56.9 - Malignant neoplasm of unspecified ovary
[2025-02-25 10:34] LABS: CALCIUM 8.5 mg/dL (8.5-10.3); CREATININE 0.9 mg/dL (0.6-1.3); MAGNESIUM 1.8 mg/dL (1.7-2.3); PHOSPHORUS 2.9 mg/dL (2.5-5.0); POTASSIUM 3.5 mmol/L (3.5-4.5)
[2025-02-25 23:53] VITALS: O2SAT 95
[2025-02-26 06:11] LABS: HCT - HEMATOCRIT 29.2 % (37.0-47.0); HGB - HEMOGLOBIN 9.7 g/dL (12.0-16.0); MEAN CORPUSCULAR HEMOGLOBIN 31.1 pg (27.0-31.0); MEAN CORPUSCULAR HGB CONC 33.2 g/dL (32.0-36.0); MEAN CORPUSCULAR VOLUME 93.6 fL (81.0-99.0); MEAN PLATELET VOLUME 10.9 fL (7.9-10.8); RED BLOOD COUNT 3.12 10^6/uL (4.20-5.40); WHITE BLOOD COUNT 4.4 x10^3/uL (4.8-10.8)
[2025-02-26 06:33] LABS: CALCIUM 8.2 mg/dL (8.5-10.3); CREATININE 0.9 mg/dL (0.6-1.3); MAGNESIUM 1.8 mg/dL (1.7-2.3); PHOSPHORUS 3.1 mg/dL (2.5-5.0); POTASSIUM 3.4 mmol/L (3.5-4.5)
--- NOTE | 2025-02-26 06:44 | PROVIDER PROGRESS NOTE ---
Progress Note Progress Note Progress Note: Hospital Day # 6 - SBO POD # 4, Exploratory laparotomy, lysis of adhesions, excision small bowel segment Code Status: Full ASSESSMENT: 1) SBO - resolved. Bowel function resumed PLAN: 1) ADAT 2) IV to TKO 3) Discharge home this afternoon if tolerates PO well <><><><><> PERTINENT INTERVAL ISSUES: Passed flatus and bowel motions last night S: Hungry; No nausea; Passing flatus and stool from rectum; Incision pain controlled with oral Tylenol OBJECTIVE: I/O: 1300/Not recorded VS: BP 144/89; P 66; RR 18; T 36.4 EXAMINATION: MENTAL STATUS: AAO; Comfortable EYES: Pupils equal, round and reactive to light, sclera anicteric, EARS, NOSE, MOUTH, THROAT: Normal hearing, Oral mucous membranes moist and without lesions; NGT in place - scant output NECK: No crepitus, lymphadenopathy, or thyromegaly LUNGS: Clear to auscultation without wheezing; No use of accessory muscles to breathe CARDIOVASCULAR: Heart-NSR without murmurs; ABD: Soft, non-tender, non-distended; Incision clean and dry; ACTIVE BS EXTREMITIES: No clubbing, cyanosis, infections SKIN: Anicteric; No rashes, lesions, ulcerations LABS: H&H 29.2/9.7; WBC 4.4; PLT 173; NA 138; K 3.4; Cr 0.9; Glu 71; Mg 1.8; Phos 3.1 CULTURES: Gm stain - NOS PATH/CYTOLOGY Pending IMAGING: None today ANTIMICROBIALS: Prophylactic completed PAIN CONTROL: Tylenol VTEP: Chemical: Enoxaparin, 40mg, SQ, QD Mechanical: SANTOS Medina MD, FACS General Surgery Service
[2025-02-26 07:34] VITALS: BP 131/90; TEMP 97.9
--- NOTE | 2025-02-26 10:24 | Discharge Summary ---
Discharge Summary Admit Date: 02/21/25 Discharge Date: 02/26/25 Discharging Provider: Dr. Dwight De Guzman Primary Care Provider: Melissa Doyle (oncologist is Isidro Park) Code Status: Attempt Resuscitation Discharge Facility Name: Home DIAGNOSES Admission Diagnoses: Small bowel obstruction Stage IV carcinoma of ovary Discharge Diagnoses with Status of Each Condition: Small bowel obstructionpatient has extensive history of stage IV ovarian cancer with oophorectomy and hysterectomy, multiple abdominal surgeries. CT abdomen/pelvis showed complete small bowel obstruction on 02/21. She underwent exploratory laparotomy, reanastomosis on 02/22. Since then, NG tube has been removed, she is tolerating p.o. intake. She is passing gas and having bowel movements. Continue pain control with Tylenol at home. She needs close follow- up with her surgeon, oncologist, primary care physician in the next few weeks. Stage IV carcinoma of ovarycurrently just on immunotherapy. Continue to follow-up with oncologist in the outpatient setting. HPI History of Present Illness: Per Dr. Adamson: Is a 60-year-old female who has history of a change in bowel habits dating to 2018 in [place], [place]. She has been subsequently diagnosed with metastatic ovarian cancer and has undergone extirpative surgery with hysterectomy and oophorectomy that year. About 9 months later in 2019 had erosion of tumor into the bowel resulted in a colon resection with reanastomosis. 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 Treatment changed to immunotherapy treatment. She is felt to be in remission and is on maintenance therapy. It's been 4 years. She moved to the [place] to leave the "[facility]" [facility] and at the recommendations of friends who live here. It's cold. she can't get warm. She has also lost about 35-40 pounds on a plant based diet, and weight training with core emphasis. Here PCP is Dr. Shantel Jerry DO at [facility]. Her Oncologist is Diana Park MD at [facility]. She began vomiting February 19. It started that evening and she has been unable to keep anything down between then and now. She has not had a bowel movement since that morning. She denies fever, chills. There is no blood in the emesis. She has not had this before. Vital signs in the ER had a temperature of 36.6, heart rate of 92, respirations 18, O2 sat 98% on room air with a blood pressure of 136/93. Her labs showed her to have a sodium of 140. BUN 33, creatinine 1.3. We do not have any previous labs on her to compare to. Total bili 1.1. Liver function studies normal. White cell count normal at 8.6. And abdomen/pelvis CT showing small bowel obstruction involving the bowel to bowel anastomosis. Transition point identified within the left lower quadrant axial image with moderate free fluid within the abdomen without abscess. No pelvic adenopathy. Hepatic steatosis. NG tube was placed. DASH Barba discussed the case with general surgery on-call. Dr. Hudson will consult on the patient tomorrow and we will be the admitting service. CONSULTS | PROCEDURES Consultations: General surgery Procedures: CT abdomen, exploratory laporotomy, x-ray abdomen HOSPITAL COURSE Hospital Course: Patient is a 60 year old woman who has extensive history of stage IV ovarian cancer with oophorectomy and hysterectomy, multiple abdominal surgeries. CT abdomen/pelvis showed complete small bowel obstruction on 02/21. She underwent exploratory laparotomy, reanastomosis on 02/22. Since then, NG tube has been removed, she is tolerating p.o. intake. She is passing gas and having bowel movements. Continue pain control with Tylenol at home. She needs close follow- up with her surgeon, oncologist, primary care physician in the next few weeks. ALLERGIES Allergies Allergy/AdvReac Type Severity Reaction Status Date / Time No Known Drug Allergies Allergy Verified 02/21/25 13:35 MEDICATIONS Ambulatory Orders Medication Instructions Recorded Confirmed betamethasone dipropionate 0.05 % 1 applic topical OREN LY PRN skin 02/22/25 02/22/25 topical cream irritation cholecalciferol (vitamin D3) 25 25 mcg PO DAILY 02/22/25 mcg (1,000 unit) capsule (Vitamin D3) desonide 0.05 % topical cream 1 applic topical ONCE UT N skin 02/22/25 02/22/25 irritation levothyroxine 75 mcg tablet 75 mcg PO DAILY 02/22/25 0 02/22/25 (Synthroid) mecobalamin (vitamin B12) 1,000 1,000 mcg PO DAILY 03/1402/22/25 mcg chewable tablet acetaminophen 325 mg tablet 650 mg (2 x 325 mg) PO Q6H Pain Or 02/26/25 Fever > 38c (100.4f) #30 tabs PHYSICAL EXAM AT DISCHARGE Vital Signs: Vital Signs x48h Temp Pulse Resp BP Pulse Ox 02/26/25 07:33 97.9 F 68 16 131/90 H 95 General Appearance: positive No acute distress and Alert; negative Anxious Eyes Bilateral: positive Normal inspection, PERRL and EOMI ENT: positive ENT inspection nml, Pharynx nml and No signs of dehydration Neck: positive Nml inspection, Thyroid nml and No JVD Respiratory: positive Chest non-tender, No respiratory distress and Breath sounds nml; negative Wheezes, Rales or Rhonchi Cardiovascular: positive Regular rate & rhythm, No murmur and No gallop Peripheral Pulses: positive 2+ Abdomen: positive No distention, Tenderness (minimal around surgical site) and Other (some crusting noted around surgical site ) Back: positive Nml inspection; negative CVA tenderness (R) or CVA tenderness (L) Skin: positive Color nml, No rash, Warm and Dry Extremities: positive Non-tender, Full ROM, Nml appearance and No pedal edema Neurologic/Psychiatric: positive Oriented x3, Motor nml, Sensation nml and Mood/affect nml LABS 02/26/25 05:30 02/26/25 05:30 FOLLOW UP Follow Up: LFollow up with surgeon. Follow up with primary care provider. Follow up with oncologist. TIME SPENT Time Spent in Discharge (Minutes): 35 Discharge Plan Discharge Patient Disposition: 01 Home, Self Care Condition: Good Prescriptions: New acetaminophen 325 mg Tablet 650 mg PO Q6H Qty: 30 0RF Rx Instructions: Tylenol 650 mg orally 4 x a day for next 3 days, then 4 x a day as needed Continued desonide 0.05 % cream 1 applic TOPICAL ONCE PRN (Reason: skin irritation) levothyroxine [Synthroid] 75 mcg tablet 75 mcg PO DAILY betamethasone dipropionate 0.05 % cream 1 applic TOPICAL DAILY PRN (Reason: skin irritation) cholecalciferol (vitamin D3) [Vitamin D3] 25 mcg (1,000 unit) capsule 25 mcg PO DAILY mecobalamin (vitamin B12) 1,000 mcg tablet,chewable 1,000 mcg PO DAILY Activity Restrictions: Activity as Tolerated Diet: Soft Health Concerns: You came in because you were having abdominal pain. You were found to have an obstruction in your small bowel, which was operated on successfully. Your bowel function is returning as expected. Please follow the following instructions as per your surgeon: Diet: As tolerated Activity: Be active, but remember, if it hurts to do, don't do it Meds: Use all regular meds as usual For pain control: Tylenol 650 mg orally 4 x a day for next 3 days, then 4 x a day as needed Wound Care: You may shower gently over the abdominal staple line. Pad dry. The juan will be removed when we see you in the office. Follow-up: General Surgery clinic in 7-10 days or sooner as needed. Our clinic staff will contact you for an appointment date. Call the clinic at with questions or concerns. I would also like you to call your oncologist office, and keep them updated to see if they need to move your immunotherapy date. I did call and leave a message, and am going to have our administrators fax records over. However, they may need to put in a formal request as well. I would also like you to follow-up with your primary care provider in the next few weeks as well. Please take it easy as outlined above, and continue pain control and close follow-up with your surgeon. We are glad you are feeling better, thanks for letting us take care of you. Print Language: [place] Patient Instructions: Surgery Anesthesia After, Obstruction Sm Bowel Stand Alone Forms: PCP List Follow-up Care: Byron Medina MD [Provider Admit Priv/Credential] - SHANTEL MANDUJANO DO [Primary Care Provider] -
--- NOTE | 2025-02-26 12:17 | PROVIDER PROGRESS NOTE ---
Progress Note Progress Note Progress Note: General Surgery Progress Note Patient tolerating a full liquid diet. No abdominal discomfort or emesis. Passing flatus. Ready for discharge. Discharge Instructions: Diet: As tolerated Activity: Be active, but remember, if it hurts to do, don't do it Meds: Use all regular meds as usual For pain control: Tylenol 650 mg orally 4 x a day for next 3 days, then 4 x a day as needed Wound Care: You may shower gently over the abdominal staple line. Pad dry. The juan will be removed when we see you in the office. Follow-up: General Surgery clinic in 7-10 days or sooner as needed. Our clinic staff will contact you for an appointment date. Call the clinic at with questions or concerns Byron Medina MD, FACS General Surgery Service
== END 2025-02-26 12:52 | disposition home or self-care (01) | DRG 330 ==
LOC: ED 13:23 → MS2 13:23
PROVIDERS: ADMIT Specialist; ATTEND Specialist
DX: K56.52 Intestinal adhesions [bands] with complete obstruction; Z85.43 Personal history of malignant neoplasm of ovary; C56.9 Malignant neoplasm of unspecified ovary; Z90.722 Acquired absence of ovaries, bilateral; Z90.710 Acquired absence of both cervix and uterus; Z98.0 Intestinal bypass and anastomosis status; Z90.79 Acquired absence of other genital organ(s); K56.609 Unspecified intestinal obstruction, unspecified as to partial versus complete obstruction; Z90.49 Acquired absence of other specified parts of digestive tract